=== PATIENT | female | born 1970 | race Caucasian/White ===

== ENCOUNTER → 2018-06-30 | Outpatient (CLI) | payer OTHER ==
--- NOTE | 2018-06-30 12:11 | MM ---
Reason for exam: screening (asymptomatic). Baseline mammogram. Physical Findings: Nurse did not find any significant physical abnormalities on exam. MG Screening Mammo w CAD Bilateral CC and MLO view(s) were taken. There are scattered fibroglandular densities. 9mm somewhat reinform shaped mass 2 o'clock middle to posterior depth left breast likely intramammary lymph node. 6 month follow up recommended. These results were verbally communicated with the patient and result sheet given to the patient on 06/30/18. ASSESSMENT: Probably benign, BI-RAD 3 RECOMMENDATION: Follow-up diagnostic mammogram of the left breast in 6 months.
== END | disposition home or self-care (01) ==
LOC: RADMAMWWP 10:22
PROVIDERS: ATTEND Family Medicine
DX: Z12.31 Encounter for screening mammogram for malignant neoplasm of breast (principal)
CPT/HCPCS: 77067

== ENCOUNTER → 2018-12-29 | Outpatient (CLI) | payer OTHER ==
--- NOTE | 2018-12-30 08:59 | MM ---
Reason for exam: follow-up at short interval from prior study. Last mammogram was performed 6 months ago. Physical Findings: Nurse did not find any significant physical abnormalities on exam. MG Diagnostic Mammo LT w CAD CC and MLO view(s) were taken of the left breast. Prior study comparison: June 30, 2018, bilateral MG screening mammo w CAD. The breast tissue is heterogeneously dense. This may lower the sensitivity of mammography. Finding: There is a typically benign equal density (isodense), circumscribed oval mass in the upper outer quadrant, middle position of the left breast consistent with lymph node. There is a chronic nodularity in the left breast. No significant changes in finding since June 30, 2018. These results were verbally communicated with the patient and result sheet given to the patient on 12/29/18. ASSESSMENT: Benign, BI-RAD 2 RECOMMENDATION: Return to routine screening mammogram schedule for both breasts. Back on schedule.
== END | disposition home or self-care (01) ==
LOC: RADMAMWWP 09:34
PROVIDERS: ATTEND Family Medicine
DX: R92.8 Other abnormal and inconclusive findings on diagnostic imaging of breast (principal)
CPT/HCPCS: 77065

== ENCOUNTER → 2019-03-11 | Outpatient (CLI) | payer OTHER ==
[2019-03-11 16:54] VITALS: BP 120/81; PULSE 61; TEMP 98.3; BMI 41.3
--- NOTE | 2019-03-11 17:00 | P.PN ---
Subjective Progress Note Date: 03/11/19 DATE OF SERVICE: 03/11/2019 REASON FOR CONSULTATION: Bariatric evaluation HISTORY OF PRESENT ILLNESS: Britt Carreno is a 48-year-old female who comes in with morbid obesity. She has completed medically supervised weight including evaluation for reflux disease, cardiac risk assessment. As a result of her BMI over 40 with complications of diabetes type 2, sleep apnea, reflux, depressive disorder, and hypertension, she is looking for a sleeve gastrectomy. She had all of her care done at [facility] however secondary to the dissolution of the program, she is now seeking other options. At height of 5 feet 2 inches, her ideal body weight is 135 pounds. She comes in 226 pounds. Her body mass index is 41.3. She is 91 pounds overweight. PAST MEDICAL HISTORY: 1. Morbid obesity due to excess calories 2. Body mass index of 41.3 3. Osteoarthritis of the knees. 4. Osteoarthritis of the lower back. 5. Hypertensive heart disease. 6. Gastroesophageal reflux disease 7. Hyperlipidemia 8. Obstructive sleep apnea 9. Diabetes type 2, non-insulin dependent 10. Hypothyroidism 11. Depressive disorder 12. Generalized anxiety disorder PAST SURGICAL HISTORY: 1. Tubal ligation 2. Upper endoscopy 3. Hysterectomy HOME MEDICATIONS: ALLERGIES: Home Medications Medication Instructions Recorded Confirmed Levothyroxine Sodium [Synthroid] 150 mcg PO DAILY 05/11/15 03/16/19 metFORMIN HCL 1,000 mg PO BID 05/11/15 03/16/19 Aspirin 81 mg PO DAILY 03/12/19 03/16/19 Citalopram Hydrobromide 60 mg PO DAILY 03/12/19 03/16/19 [Citalopram HBr] Cyclobenzaprine [Flexeril] 10 mg PO DIRECTED 03/12/19 03/16/19 Glimepiride [Amaryl] 4 mg PO BID 03/12/19 03/16/19 HYDROcodone/APAP 7.5-325MG [[place] 1 tab PO DIRECTED 03/12/19 03/16/19 7.5-325] Semaglutide [Ozempic] 1 injection SQ WEEKLY 03/12/19 03/16/19 Atorvastatin [Lipitor] 40 mg PO DAILY 03/16/19 03/16/19 Benazepril [Lotensin] 10 mg PO DAILY 03/16/19 03/16/19 Empagliflozin [Jardiance] 25 mg PO DAILY 03/16/19 03/16/19 Ergocalciferol [Vitamin D2] 50,000 unit PO Q7D 03/16/19 03/16/19 Multivitamins, Thera [Multivitamin 1 tab PO DAILY 03/16/19 03/16/19 (formulary)] Omeprazole 20 mg PO DAILY 03/16/19 03/16/19 Allergies Allergy/AdvReac Type Severity Reaction Status Date / Time No Known Allergies Allergy Verified 03/16/19 10:54 SOCIAL HISTORY: No past tobacco use. FAMILY HISTORY: No family history of ulcerative colitis disease or Crohn's disease. Family history of morbid obesity. No lupus in the family. No reports of stomach or esophageal cancer. REVIEW OF ORGAN SYSTEMS: CONSTITUTIONAL: At height of 5 feet 2 inches, her ideal body weight is 135 po unds. She comes in 226 pounds. Her body mass index is 41.3. She is 91 pounds overweight. HEENT: Denies any active troubles with vision or hearing. No troubles with swallowing. ENDOCRINE: Has diabetes. No hypothyroidism. CARDIOVASCULAR: No past reports of palpitations or heart attacks or chest pain. RESPIRATORY: Has daytime somnolence. No asthma. GASTROINTESTINAL: Denies any bright red blood per rectum. No diarrhea. No constipation. MUSCULOSKELETAL: Has lower back pain and joint pain. Has osteoarthritis of the knees. NEURO: No headaches. No seizure disorders. PSYCH: Has depression. No suicidal ideation. RHEUMATOLOGIC: No lupus. No rheumatoid arthritis. HEMATOLOGIC: Denies any abnormal bleeding or bruising. No personal history of DVTs. SKIN: No rash. No skin cancer. PHYSICAL EXAM: VITAL SIGNS: Height 5 foot 2 inches, weight 226 pounds. BMI 41.3 Vital Signs Temp 98.3 F 03/11/19 16:51 Pulse 61 03/11/19 16:51 Resp BP 120/81 03/11/19 16:51 Pulse Ox GENERAL: Well-developed in no acute distress. HEENT: No scleral icterus. Extraocular movements grossly intact. Hears conversational speech. No nasal drainage. NECK: Supple without lymphadenopathy. CHEST: Nonlabored respirations with equal bilateral excursions. CARDIOVASCULAR: Regular rate and regular rhythm. Distal 2+ pulses. ABDOMEN: Obese, soft, nontender, nondistended. MUSCULOSKELETAL: No clubbing, cyanosis. Gross strength 5/5 distal lower extremities. NEURO: No focal or lateralizing signs. Cranial nerves 2 through 12 grossly within normal limits. PSYCH: Appropriate affect. Alert and oriented to person, place and time. SKIN: Good skin turgor. Well perfused. ASSESSMENT: 1. Morbid obesity due to excess calories 2. Body mass index of 41.3 3. Osteoarthritis of the knees. 4. Osteoarthritis of the lower back. 5. Hypertensive heart disease. 6. Gastroesophageal reflux disease 7. Hyperlipidemia 8. Obstructive sleep apnea 9. Diabetes type 2, non-insulin dependent 10. Hypothyroidism 11. Depressive disorder 12. Generalized anxiety disorder PLAN: 1. Bariatric options between a sleeve, band and a Janet-en-Y gastric bypass were reviewed in detail. The patient elected for a sleeve gastrectomy. Robotic assisted approach described. 2. The [place] [facility] Data was also reviewed with benefits and risks as described. 3. An 8 page second-generation bariatric consent form was reviewed in detail including potential of bleeding, infection, leaks, adequate weight loss, nutritional deficiencies which the patient demonstrated understanding of the risks. 4. A 2 week high-protein low caloric 800 kcal diet described to address hepatomegaly. 5. Preoperative labs including complete metabolic panel and CBC with type and screen recommended. 6. DVT prophylaxis per [place] [facility]. 7. Antibiotic prophylaxis. 8. Inpatient hospitalization anticipated for more than 2 nights. 9. All questions and concerns were addressed with the patient. Thank you for this consultation. Objective - Vital Signs Vital signs: Vital Signs Temp 98.3 F 03/11/19 16:51 Pulse 61 03/11/19 16:51 Resp BP 120/81 03/11/19 16:51 Pulse Ox Intake & Output 03/10/19 03/11/19 03/11/19 18:59 06:59 18:59 Weight 102.512 kg
== END | disposition home or self-care (01) ==
LOC: BARWHC3 15:47
PROVIDERS: ATTEND Surgery Plastic and Reconstructive Surgery
DX: E66.01 Morbid (severe) obesity due to excess calories (principal); M17.0 Bilateral primary osteoarthritis of knee; M47.816 Spondylosis without myelopathy or radiculopathy, lumbar region; I11.9 Hypertensive heart disease without heart failure; K21.9 Gastro-esophageal reflux disease without esophagitis; E78.5 Hyperlipidemia, unspecified; G47.33 Obstructive sleep apnea (adult) (pediatric); E11.9 Type 2 diabetes mellitus without complications; E03.9 Hypothyroidism, unspecified; F32.9 Major depressive disorder, single episode, unspecified; F41.1 Generalized anxiety disorder; Z68.41 Body mass index [BMI] 40.0-44.9, adult; Z90.710 Acquired absence of both cervix and uterus; Z98.51 Tubal ligation status; Z79.82 Long term (current) use of aspirin; Z79.84 Long term (current) use of oral hypoglycemic drugs; Z79.899 Other long term (current) drug therapy
CPT/HCPCS: 99211

== ENCOUNTER → 2019-03-16 | Outpatient (CLI) | payer OTHER ==
[2019-03-16 09:52] VITALS: BMI 40.5
== END ==
LOC: BARWHC3 08:54
PROVIDERS: ATTEND Surgery Plastic and Reconstructive Surgery
DX: E66.01 Morbid (severe) obesity due to excess calories (principal); Z68.41 Body mass index [BMI] 40.0-44.9, adult
CPT/HCPCS: 97804

== ENCOUNTER → 2019-06-24 | Outpatient (CLI) | payer OTHER ==
[2019-06-24 15:51] VITALS: BP 114/82; PULSE 112; TEMP 98.3; BMI 37.6
--- NOTE | 2019-06-24 19:50 | P.PN ---
Progress Note - Text Progress Note Date: 06/24/19 Patient left prior to being seen
== END | disposition home or self-care (01) ==
LOC: BARWHC3 13:59
PROVIDERS: ATTEND Surgery Plastic and Reconstructive Surgery
DX: Z53.21 Procedure and treatment not carried out due to patient leaving prior to being seen by health care provider (principal)
CPT/HCPCS: 99211

== ENCOUNTER → 2019-07-06 | Outpatient (CLI) | payer OTHER ==
[2019-07-06 16:52] LABS: Basophils # (A) 0.1 k/uL (0-0.2); Basophils % (A) 1 %; Eosinophils # (A) 0.2 k/uL (0-0.7); Eosinophils % (A) 2 %; HCT 44.4 % (34.0-46.0); HGB 14.4 gm/dL (11.4-16.0); Lymphocytes # (A) 2.7 k/uL (1.0-4.8); Lymphocytes % (A) 31 %; MCH 28.1 pg (25.0-35.0); MCHC 32.5 g/dL (31.0-37.0); MCV 86.3 fL (80.0-100.0); Mean Platelet Volume 7.2; Monocytes # (A) 0.3 k/uL (0-1.0); Monocytes % (A) 4 %; Neutrophils # (A) 5.4 k/uL (1.3-7.7); Neutrophils % (A) 61 %; Platelet Count 250 k/uL (150-450); RBC 5.14 m/uL (3.80-5.40); RDW 12.8 % (11.5-15.5); WBC 8.8 k/uL (3.8-10.6)
[2019-07-06 16:59] LABS: ALT 52 U/L (9-52); AST 34 U/L (14-36); African American GFR (CKD) >90 (>60 ml/min/1.73 sqM); Albumin 4.6 g/dL (3.5-5.0); Alkaline Phosphatase 72 U/L (38-126); Anion Gap 11 mmol/L; Blood Urea Nitrogen 18 mg/dL (7-17); Calcium 10.5 mg/dL (8.4-10.2); Carbon Dioxide 27 mmol/L (22-30); Chloride 104 mmol/L (98-107); Glucose 61 mg/dL (74-99); Non-African American GFR(CKD) >90 (>60 ml/min/1.73 sqM); Potassium 4.5 mmol/L (3.5-5.1); Sodium 142 mmol/L (137-145); Total Bilirubin 0.6 mg/dL (0.2-1.3); Total Protein 7.6 g/dL (6.3-8.2)
== END | disposition home or self-care (01) ==
LOC: LABPAT 15:41
PROVIDERS: ATTEND Surgery Plastic and Reconstructive Surgery
DX: Z01.810 Encounter for preprocedural cardiovascular examination (principal); Z01.812 Encounter for preprocedural laboratory examination
CPT/HCPCS: 36415; 80053; 85025; 93005

== ENCOUNTER → 2019-07-08 | Outpatient (CLI) | payer OTHER ==
--- NOTE | 2019-07-08 15:22 | P.PN ---
Subjective Progress Note Date: 07/08/19 DATE OF SERVICE: 07/08/2019 CHIEF COMPLAINT: Morbid obesity HISTORY OF PRESENT ILLNESS: Britt Carreno is a 48-year-old female who comes in with morbid obesity. She has co-morbidities including diabetes type 2, sleep apnea, reflux, depressive disorder, and hypertension. She is looking for a sleeve gastrectomy. She comes in with troubles with her gallbladder which is new. She has improved control of her Hgb A1C from 8.5 to 5.1. She has lost 30 pounds. She has strong family history of gallbladder issue. At height of 5 feet 2 inches, her ideal body weight is 135 pounds. Highest 226 pounds, BMI 41.4. She comes in 210 pounds from 226 pounds, 4 months. She has lost 16 pounds in 4 months. She is 75 pounds overweight. PAST MEDICAL HISTORY: 1. Morbid obesity due to excess calories 2. Body mass index of 41.3 3. Osteoarthritis of the knees. 4. Osteoarthritis of the lower back. 5. Hypertensive heart disease. 6. Gastroesophageal reflux disease 7. Hyperlipidemia 8. Obstructive sleep apnea 9. Diabetes type 2, non-insulin dependent 10. Hypothyroidism 11. Depressive disorder 12. Generalized anxiety disorder PAST SURGICAL HISTORY: 1. Tubal ligation 2. Upper endoscopy 3. Hysterectomy HOME MEDICATIONS: ALLERGIES: Home Medications Medication Instructions Recorded Confirmed Levothyroxine Sodium [Synthroid] 150 mcg PO DAILY 05/11/15 03/16/19 metFORMIN HCL 1,000 mg PO BID 05/11/15 03/16/19 Aspirin 81 mg PO DAILY 03/12/19 03/16/19 Citalopram Hydrobromide 60 mg PO DAILY 03/12/19 03/16/19 [Citalopram HBr] Cyclobenzaprine [Flexeril] 10 mg PO DIRECTED 03/12/19 03/16/19 Glimepiride [Amaryl] 4 mg PO BID 03/12/19 03/16/19 HYDROcodone/APAP 7.5-325MG [[place] 1 tab PO DIRECTED 03/12/19 03/16/19 7.5-325] Semaglutide [Ozempic] 1 injection SQ WEEKLY 03/12/19 03/16/19 Atorvastatin [Lipitor] 40 mg PO DAILY 03/16/19 03/16/19 Benazepril [Lotensin] 10 mg PO DAILY 03/16/19 03/16/19 Empagliflozin [Jardiance] 25 mg PO DAILY 03/16/19 03/16/19 Ergocalciferol [Vitamin D2] 50,000 unit PO Q7D 03/16/19 03/16/19 Multivitamins, Thera [Multivitamin 1 tab PO DAILY 03/16/19 03/16/19 (formulary)] Omeprazole 20 mg PO DAILY 03/16/19 03/16/19 Allergies Allergy/AdvReac Type Severity Reaction Status Date / Time No Known Allergies Allergy Verified 03/16/19 10:54 SOCIAL HISTORY: No past tobacco use. FAMILY HISTORY: No family history of ulcerative colitis disease or Crohn's disease. Family history of morbid obesity. No lupus in the family. No reports of stomach or esophageal cancer. REVIEW OF ORGAN SYSTEMS: CONSTITUTIONAL: At height of 5 feet 2 inches, her ideal body weight is 135 pounds. She comes in 226 pounds. Her body mass index is 41.3. She is 91 pounds overweight. HEENT: Denies any active troubles with vision or hearing. No troubles with swallowing. ENDOCRINE: Has diabetes. No hypothyroidism. CARDIOVASCULAR: No past reports of palpitations or heart attacks or chest pain. RESPIRATORY: Has daytime somnolence. No asthma. GASTROINTESTINAL: Denies any bright red blood per rectum. No diarrhea. No c onstipation. MUSCULOSKELETAL: Has lower back pain and joint pain. Has osteoarthritis of the knees. NEURO: No headaches. No seizure disorders. PSYCH: Has depression. No suicidal ideation. RHEUMATOLOGIC: No lupus. No rheumatoid arthritis. HEMATOLOGIC: Denies any abnormal bleeding or bruising. No personal history of DVTs. SKIN: No rash. No skin cancer. PHYSICAL EXAM: VITAL SIGNS: Height 5 foot 2 inches, weight 210 pounds. BMI 38.4 Vital Signs Temp 98.2 F 07/08/19 15:41 Pulse 116 H 07/08/19 15:41 Resp BP 131/87 07/08/19 15:41 Pulse Ox GENERAL: Well-developed in no acute distress. HEENT: No scleral icterus. Extraocular movements grossly intact. Hears conversational speech. No nasal drainage. NECK: Supple without lymphadenopathy. CHEST: Nonlabored respirations with equal bilateral excursions. CARDIOVASCULAR: Tachycardic. Distal 2+ pulses. ABDOMEN: Obese, soft, nontender, nondistended. MUSCULOSKELETAL: No clubbing, cyanosis. NEURO: No focal or lateralizing signs. Cranial nerves 2 through 12 grossly within normal limits. PSYCH: Appropriate affect. Alert and oriented to person, place and time. SKIN: Good skin turgor. Well perfused. EKG: Reviewed prolonged QT LABS: Glucose low. ASSESSMENT: 1. Morbid obesity due to excess calories 2. Body mass index of 41.3 to 38.4 3. Osteoarthritis of the knees. 4. Osteoarthritis of the lower back. 5. Hypertensive heart disease. 6. Gastroesophageal reflux disease 7. Hyperlipidemia 8. Obstructive sleep apnea 9. Diabetes type 2, non-insulin dependent 10. Hypothyroidism 11. Depressive disorder 12. Generalized anxiety disorder PLAN: 1. Bariatric options between a sleeve, band and a Janet-en-Y gastric bypass were reviewed in detail. The patient elected for a sleeve gastrectomy. Robotic assisted approach described. 2. The [place] [facility] Data was also reviewed with benefits and risks as described. 3. An 8 page second-generation bariatric consent form was reviewed in detail including potential of bleeding, infection, leaks, adequate weight loss, nutritional deficiencies which the patient demonstrated understanding of the risks. 4. A 2 week high-protein low caloric 800 kcal diet described to address hepatomegaly. 5. Preoperative labs including complete metabolic panel and CBC with type and screen recommended. 6. DVT prophylaxis per [place] [facility]. 7. Antibiotic prophylaxis. 8. Inpatient hospitalization anticipated for more than 2 nights. 9. All questions and concerns were addressed with the patient. 10. Recommend cholecystectomy for cholecystitis. 11. She is elevated risk for complications with pre-existing tachycardia.
[2019-07-08 15:48] VITALS: BP 131/87; PULSE 116; TEMP 98.2; BMI 38.4
== END | disposition home or self-care (01) ==
LOC: BARWHC3 14:49
PROVIDERS: ATTEND Surgery Plastic and Reconstructive Surgery
DX: E66.01 Morbid (severe) obesity due to excess calories (principal); M17.0 Bilateral primary osteoarthritis of knee; I11.9 Hypertensive heart disease without heart failure; K21.9 Gastro-esophageal reflux disease without esophagitis; E78.5 Hyperlipidemia, unspecified; G47.33 Obstructive sleep apnea (adult) (pediatric); E11.9 Type 2 diabetes mellitus without complications; E03.9 Hypothyroidism, unspecified; F32.9 Major depressive disorder, single episode, unspecified; F41.1 Generalized anxiety disorder; Z68.41 Body mass index [BMI] 40.0-44.9, adult
CPT/HCPCS: 86850; 86900; 86901; 99211

== ENCOUNTER 2019-07-13 07:30 | Inpatient (IN) | payer OTHER ==
[~2019-07-13 07:30] MED LIST: DEXAMETHASONE SOD PHOSPHATE 10 MG/ML 1 ML VIAL IV ONE; LIDOCAINE 1% 20 ML VIAL (10MG/ML) FOR IV START INTRADERMA PRN; ONDANSETRON 4 MG/2 ML VIAL IVP ONE; SCOPOLAMINE 1.5MG/72HR PATCH TRANSDERM ONE
[2019-07-13] MEDS ORDERED: ENOXAPARIN 40 MG/0.4 ML SYRINGE SQ STA (07:44)
[2019-07-13] MEDS ORDERED: PANTOPRAZOLE 40 MG/10 ML VIAL IV STA (07:44)
[2019-07-13] MEDS ORDERED: CHLORHEXIDINE GLUCONATE 15 ML CUP MUCOUS MEM ONE (07:44)
--- NOTE | 2019-07-13 07:50 | P.GSHP ---
History of Present Illness H&P Date: 07/13/19 DATE OF SERVICE: 07/13/2019 CHIEF COMPLAINT: Morbid obesity HISTORY OF PRESENT ILLNESS: Britt Carreno is a 48-year-old female who comes in with morbid obesity. She has completed medically supervised weight including evaluation for reflux disease, cardiac risk assessment. As a result of her BMI over 40 with complications of diabetes type 2, sleep apnea, reflux, depressive disorder, and hypertension, she is looking for a sleeve gastrectomy. She had all of her care done at [facility] however secondary to the dissolution of the program, she is now seeking other options. Additionally, she presents with symptomatic cholecystitis. At height of 5 feet 2 inches, her ideal body weight is 135 pounds. She comes in 206 pounds from 226 pounds, 3 months ago. She has lost 20 pounds in 3 months. Her body mass index was 41.3 now down to 37.7. She was 91 pounds overweight. PAST MEDICAL HISTORY: 1. Morbid obesity due to excess calories 2. Body mass index of 41.3 3. Osteoarthritis of the knees. 4. Osteoarthritis of the lower back. 5. Hypertensive heart disease. 6. Gastroesophageal reflux disease 7. Hyperlipidemia 8. Obstructive sleep apnea 9. Diabetes type 2, non-insulin dependent 10. Hypothyroidism 11. Depressive disorder 12. Generalized anxiety disorder PAST SURGICAL HISTORY: 1. Tubal ligation 2. Upper endoscopy 3. Hysterectomy HOME MEDICATIONS: ALLERGIES: Home Medications Medication Instructions Recorded Confirmed Levothyroxine Sodium [Synthroid] 150 mcg PO DAILY 05/11/15 03/16/19 metFORMIN HCL 1,000 mg PO BID 05/11/15 03/16/19 Aspirin 81 mg PO DAILY 03/12/19 03/16/19 Citalopram Hydrobromide 60 mg PO DAILY 03/12/19 03/16/19 [Citalopram HBr] Cyclobenzaprine [Flexeril] 10 mg PO DIRECTED 03/12/19 03/16/19 Glimepiride [Amaryl] 4 mg PO BID 03/12/19 03/16/19 HYDROcodone/APAP 7.5-325MG [[place] 1 tab PO DIRECTED 03/12/19 03/16/19 7.5-325] Semaglutide [Ozempic] 1 injection SQ WEEKLY 03/12/19 03/16/19 Atorvastatin [Lipitor] 40 mg PO DAILY 03/16/19 03/16/19 Benazepril [Lotensin] 10 mg PO DAILY 03/16/19 03/16/19 Empagliflozin [Jardiance] 25 mg PO DAILY 03/16/19 03/16/19 Ergocalciferol [Vitamin D2] 50,000 unit PO Q7D 03/16/19 03/16/19 Multivitamins, Thera [Multivitamin 1 tab PO DAILY 03/16/19 03/16/19 (formulary)] Omeprazole 20 mg PO DAILY 03/16/19 03/16/19 Allergies Allergy/AdvReac Type Severity Reaction Status Date / Time No Known Allergies Allergy Verified 03/16/19 10:54 SOCIAL HISTORY: No past tobacco use. FAMILY HISTORY: No family history of ulcerative colitis disease or Crohn's disease. Family history of morbid obesity. No lupus in the family. No reports of stomach or esophageal cancer. REVIEW OF ORGAN SYSTEMS: CONSTITUTIONAL: At height of 5 feet 2 inches, her ideal body weight is 135 pounds. She comes in 226 pounds. Her body mass index is 41.3. She is 91 pounds overweight. HEENT: Denies any active troubles with vision or hearing. No troubles with swallowing. ENDOCRINE: Has diabetes. No hypothyroidism. CARDIOVASCULAR: No past reports of palpitations or heart attacks or chest pain. RESPIRATORY: Has daytime somnolence. No asthma. GASTROINTESTINAL: Denies any bright red blood per rectum. No diarrhea. No constipation. MUSCULOSKELETAL: Has lower back pain and joint pain. Has osteoarthritis of the knees. NEURO: No headaches. No seizure disorders. PSYCH: Has depression. No suicidal ideation. RHEUMATOLOGIC: No lupus. No rheumatoid arthritis. HEMATOLOGIC: Denies any abnormal bleeding or bruising. No personal history of DVTs. SKIN: No rash. No skin cancer. PHYSICAL EXAM: VITAL SIGNS: Height 5 foot 2 inches, weight 226 pounds. BMI 41.3 GENERAL: Well-developed in no acute distress. HEENT: No scleral icterus. Extraocular movements grossly intact. Hears conversational speech. No nasal drainage. NECK: Supple without lymphadenopathy. CHEST: Nonlabored respirations with equal bilateral excursions. CARDIOVASCULAR: Regular rate and regular rhythm. Distal 2+ pulses. ABDOMEN: Obese, soft, nontender, nondistended. MUSCULOSKELETAL: No clubbing, cyanosis. Gross strength 5/5 distal lower extremities. NEURO: No focal or lateralizing signs. Cranial nerves 2 through 12 grossly within normal limits. PSYCH: Appropriate affect. Alert and oriented to person, place and time. SKIN: Good skin turgor. Well perfused. ASSESSMENT: 1. Morbid obesity due to excess calories 2. Body mass index of 41.3 3. Osteoarthritis of the knees. 4. Osteoarthritis of the lower back. 5. Hypertensive heart disease. 6. Gastroesophageal reflux disease 7. Hyperlipidemia 8. Obstructive sleep apnea 9. Diabetes type 2, non-insulin dependent 10. Hypothyroidism 11. Depressive disorder 12. Generalized anxiety disorder 13. Chronic cholecystitis PLAN: 1. Bariatric options between a sleeve, band and a Janet-en-Y gastric bypass were reviewed in detail. The patient elected for a sleeve gastrectomy. Robotic assisted approach described. 2. The [place] [facility] Data was also reviewed with benefits and risks as described. 3. An 8 page second-generation bariatric consent form was reviewed in detail including potential of bleeding, infection, leaks, adequate weight loss, nutritional deficiencies which the patient demonstrated understanding of the risks. 4. A 2 week high-protein low caloric 800 kcal diet described to address hepatomegaly. 5. Preoperative labs including complete metabolic panel and CBC with type and screen recommended. 6. DVT prophylaxis per [place] [facility]. 7. Antibiotic prophylaxis. 8. Inpatient hospitalization anticipated for more than 2 nights. 9. All questions and concerns were addressed with the patient. 10. She has chronic cholecystitis. Robotic cholecystectomy described. Past Medical History Past Medical History: Diabetes Mellitus, Hyperlipidemia, Thyroid Disorder History of Any Multi-Drug Resistant Organisms: None Reported Past Surgical History: Hysterectomy, Tubal Ligation Past Anesthesia/Blood Transfusion Reactions: Motion Sickness, Postoperative Nausea & Vomiting (PONV) Past Psychological History: Anxiety Smoking Status: Never smoker Past Alcohol Use History: None Reported Past Drug Use History: None Reported - Past Family History Mother Family Medical History: No Reported History Medications and Allergies Home Medications Medication Instructions Recorded Confirmed Type Levothyroxine Sodium [Synthroid] 150 mcg PO DAILY 05/11/15 07/03/19 History metFORMIN HCL 1,000 mg PO BID 05/11/15 07/03/19 History Citalopram Hydrobromide 60 mg PO DAILY 03/12/19 07/03/19 History [Citalopram HBr] Glimepiride [Amaryl] 4 mg PO BID 03/12/19 07/03/19 History Semaglutide [Ozempic] 1 injection SQ WEEKLY 03/12/19 07/03/19 History Atorvastatin [Lipitor] 40 mg PO DAILY 03/16/19 07/03/19 History Benazepril [Lotensin] 10 mg PO DAILY 03/16/19 07/03/19 History Empagliflozin [Jardiance] 25 mg PO DAILY 03/16/19 07/03/19 History Ergocalciferol [Vitamin D2] 50,000 unit PO [place] 03/16/19 07/03/19 History Omeprazole 20 mg PO DAILY 03/16/19 07/03/19 History Losartan [Cozaar] 100 mg PO DAILY 06/24/19 07/03/19 History Aspirin [Adult Low Dose Aspirin EC] 81 mg PO DAILY 07/03/19 07/03/19 History Multivitamins, Thera [Multivitamin 1 tab PO DAILY 07/03/19 07/03/19 History (formulary)] Allergies Allergy/AdvReac Type Severity Reaction Status Date / Time No Known Allergies Allergy Verified 07/03/19 14:11
[2019-07-13] MEDS ORDERED: INDOCYANINE GREEN 25 MG VIAL IV STA (07:51)
[2019-07-13] MEDS: LACTATED RINGERS 1,000 ML IV SCH (08:01)
[2019-07-13 08:04] LABS: Glucose,Whole Blood 126 mg/dL (75-99)
[2019-07-13] MEDS ORDERED: SUCCINYLCHOLINE CHLORIDE 100 MG/5 ML SYR IV ONE (09:49)
[2019-07-13] MEDS ORDERED: PROPOFOL 10 MG/ML 20 ML VIAL IV ONE (09:49)
[2019-07-13] MEDS ORDERED: MIDAZOLAM 2 MG/2 ML VIAL ONE (09:49)
[2019-07-13] MEDS ORDERED: NEOSTIGMINE 1 MG/ML 10 ML VIAL ONE (09:49)
[2019-07-13] MEDS ORDERED: fentaNYL (PF) 50 MCG/ML 2 ML AMP ONE (09:49)
[2019-07-13] MEDS ORDERED: LIDOCAINE 1% INJ 10MG/ML (20 ML MDV) ONE (09:49)
[2019-07-13] MEDS ORDERED: INDOCYANINE GREEN 25 MG VIAL IV ONE (09:49)
[2019-07-13] MEDS ORDERED: PHENYLEPHRINE-0.9% NACL SYG 1 MG/10 ML SYRINGE ONE (09:49)
[2019-07-13] MEDS ORDERED: ROCURONIUM BROMIDE 10 MG/ML 10 ML VIAL IV ONE (09:49)
[2019-07-13] MEDS ORDERED: GLYCOPYRROLATE 0.2 MG/ML 2 ML VIAL ONE (09:49)
[2019-07-13] MEDS ORDERED: LIDOCAINE 1%-EPI 1:100,000 20 ML VIAL SQ ONE (10:29)
[2019-07-13] MEDS ORDERED: LACTATED RINGERS 1,000 ML IV ONE ×2 (10:42→12:46)
[2019-07-13] MEDS ORDERED: NALOXONE 0.4 MG/ML 1 ML VIAL IV PRN (12:16)
[2019-07-13] MEDS ORDERED: DEXAMETHASONE SOD PHOSPHATE 10 MG/ML 1 ML VIAL IV PRN (12:16)
[2019-07-13] MEDS ORDERED: diphenhydrAMINE 50 MG/ML 1 ML VIAL IVP PRN (12:16)
[2019-07-13] MEDS ORDERED: ONDANSETRON 4 MG/2 ML VIAL IVP ONE (12:23)
[2019-07-13] MEDS: HYDROmorphone 0.5 MG/0.5 ML SYRINGE IVP PRN ×5 (12:24→18:49)
--- NOTE | 2019-07-13 12:28 | P.OP ---
Date of Procedure: 07/13/19 Description of Procedure: SURGEON: PAOLA MELO MD PREOPERATIVE DIAGNOSES: 1. Morbid obesity due to excess calories 2. Body mass index of 41.3, initial 3. Osteoarthritis of the knees. 4. Osteoarthritis of the lower back. 5. Hypertensive heart disease. 6. Gastroesophageal reflux disease 7. Hyperlipidemia 8. Obstructive sleep apnea 9. Diabetes type 2, non-insulin dependent 10. Hypothyroidism 11. Depressive disorder 12. Generalized anxiety disorder 13. Chronic cholecystitis POSTOPERATIVE DIAGNOSES: 1. Morbid obesity due to excess calories 2. Body mass index of 41.3, initial 3. Osteoarthritis of the knees. 4. Osteoarthritis of the lower back. 5. Hypertensive heart disease. 6. Gastroesophageal reflux disease 7. Hyperlipidemia 8. Obstructive sleep apnea 9. Diabetes type 2, non-insulin dependent 10. Hypothyroidism 11. Depressive disorder 12. Generalized anxiety disorder 13. Chronic cholecystitis 14. Fatty liver disease OPERATION: 1. Robotic assisted daVinci Xi laparoscopic sleeve gastrectomy with 40-Russian bougie, multiport. 2. Robotic assisted daVinci Xi laparoscopic cholecystectomy with FIREFLY, multiport. 3. Intraoperative esophagogastroduodenoscopy. ANESTHESIA: Gen. local anesthetic ESTIMATED BLOOD LOSS: 5 mL SPECIMENS REMOVED: Sleeve gastrectomy and gallbladder COMPLICATIONS: None. INDICATIONS: Britt Carreno is a 48-year-old female who comes in with morbid obesity. She has completed medically supervised weight including evaluation for reflux disease, cardiac risk assessment. As a result of her BMI over 40 with complications of diabetes type 2, sleep apnea, reflux, depressive disorder, and hypertension, she is looking for a sleeve gastrectomy. Additionally, she presents with symptomatic cholecystitis. At height of 5 feet 2 inches, her ideal body weight is 135 pounds. She comes in 206 pounds from 226 pounds, 3 months ago. She has lost 20 pounds in 3 months. Her body mass index was 41.3 now down to 37.3. She was 91 pounds overweight. All surgical options for morbid obesity had been described using the [place] bariatric surgery collaborative comorbidity resolution including complication risk score. A second-generation bariatric consent form was described in detail including the possibility of protein malnutrition, leaks, gastric stricture, venous thrombosis, gastroesophageal reflux disease, need for further surgery for which she demonstrated understanding. Additionally she has cholecystitis for which cholecystectomy was described. Benefits and risks of the procedure were described at length. Informed consent was obtained. DESCRIPTION: The patient was brought into the operating room theater. Pre operatively she had received Lovenox subcutaneously for DVT prophylaxis. Additionally she had Peridex oral solution as an oral decontaminant. After general induction, the abdomen was prepped and draped in standard sterile fashion. An Ioban draping was placed along the abdomen. No nuñez catheter was placed A robotic da Marjan Xi system was prepped and primed. At 15 cm from the xiphoid, proposed port sites were marked with indelible marker along the anterior axillary line bilaterally, mid axillary line bilaterally with each ports were marked 10 to 15 cm from each other. The resident programs assistant port was marked along the left lateral abdominal wall. The robotic stapler port was marked for the right midclavicular line. A 5 mm 0 degrees laparoscopic trocar entry was performed along the left upper q uadrant. The abdomen was insufflated to 15 mmHg pressure was tolerated well. Diagnostic laparoscopy demonstrated no injury to bowel, viscera, or mesentery. The liver surface was remarkable for mild fatty liver disease. No injury had occurred to the small bowel or viscera. Along the hiatus no evidence of prominent hiatal hernia. A 12 mm port was placed along the left upper abdominal wall after exchanging the 5 mm port. Another port was placed along the left lateral abdominal wall 8 mm. A separate 8 mm port was placed along the epigastrium and a 12-mm port placed along the right upper quadrant. Please note that the ports were placed at least 20 cm away from the target anatomy. Another port was placed along the right lateral abdominal wall, 8 mm trocar. Care was taken to check each robotic arms were safely away from collision with the bed or the patient. I had sat at the console. At the epigastrium, a median sized Kameron liver retractor was placed under direct visualization with the Iron Cotton Agent placed under the right shoulder of the patient. Next, 12-mm robot stapler port was placed along the right upper quadrant. The camera 8-mm port was maintained along the epigastrium. The patient was repositioned in reverse Trendelenburg position at 20-degrees after lowering the bed. The robot was docked along the right side of the patient. Using a grasper for arm 2, a hook cautery for arm 3, including grasper for arm 1, the robotic system was docked and primed as described. Instruments including Bovie cautery, vessel sealer, and staplers, and clips were interchanged by the resident programs assistant for stapler loads. The camera was placed at 30-degrees down. Attention was brought to the sleeve gastrectomy portion of the case. The pylorus was identified and 6 cm proximally along the greater curvature of the stomach, the short gastrics were mobilized upwards to the angle of His using a vessel sealer. Redundant and adherent gastric cardia was addressed similarly and carefully with vessel sealer. Hemostasis was excellent during this portion of the procedure. The nursing wardsperson had advanced a 40-Russian blunt bougie into the stomach. Robotic stapler green and blue loads 60 mm were used to create the sleeve. Initial firing was across the antrum of the stomach towards the angle of His. The staple line was completely hemostatic and linear without corkscrewing. Hemo stasis was excellent. The space from the angularis incisura of the sleeve was approximately 4 cm. Attention is now brought to her gallbladder. Adhesions were identified along the infundibulum of the gallbladder and addressed using vessel sealer. The gallbladder fundus was retracted over the dome of the liver. Initial attention was brought to the infundibulum which was gently retracted in the inferior lateral approach. Using a grasper, the cystic duct including the cystic artery was carefully skeletonized. A critical view of safety was obtained. FIREFLY was used to identify the cystic artery and cystic structures. Large PLASTIC clips were used throughout the entire case. Using a clip locomotive switch operator 1 clip was placed proximally, and 1 clip was placed distally along the cystic duct and then cauterized. Again care was taken to avoid any injury to the biliary tree as the common bile duct was clearly visualized during this portion of dissection. Next, the cystic artery was similarly clipped and cauterized. Electro-Bovie cautery was used to remove the gallbladder from the hepatic fossa with minimal decompression of the gallbladder. Hemostasis was checked and found to be adequate. I then went to the head of the bed to perform the intraoperative esophagogastroduodenoscopy leak test. The upper pole of the stomach was bathed using normal saline solution. The scope was withdrawn with careful inspection along the staple line for which no leaks were found along the entire length. Additionally, the sleeve was completely hemostatic without any encroachment along the angularis incisura. Its topology was a soft "J". No stricture was encountered upon placement of the scope. The GI tract was desufflated. The patient tolerated this portion of the procedure well. The scope was completely withdrawn. The robot was undocked. I then rescrubbed into case, whereby the irrigation fluid was aspirated from the abdominal cavity. Tisseal fibrin sealant was placed along the entire staple length. Once dried the Kameron liver retractor was removed. Attention was now brought to removal of the specimens including the gallbladder. Gallbladder was removed using Endo Catch bag. The distal end of the sleeve gastrectomy specimen was brought out through the 12 mm port at the left upper quadrant. The specimen was gently removed en total, corresponding to 26 cm x 4 cm sleeve gastrectomy specimen. All instruments and pneumoperitoneum including irrigation fluid was removed from the abdominal cavity. The 12 mm port site was irrigated with warm normal saline solution and diluted hydron peroxide. The specimen extraction site was oversewn using 0 Vicryl including Sherman Garza. The final incisions were closed using subcuticular interrupted suture of 4-0 Monocryl. Dermabond was applied to the skin once the skin had been cleansed. OptiFoam dressing was placed along the stomach extraction site. An abdominal binder was placed. At the end of the procedure, needle, sponge, and instrument count was verified correct by the surgical elastic knitter. The patient was taken to the postanesthesia care unit in stable condition. She had tolerated the procedure well. Intraoperative films and findings were reviewed with the patient's family. FINDINGS: 1. Negative intraoperative esophagogastrojejunoscopy leak test. 2. No hepatomegaly or large hiatus hernia. 3. Total of 6 staplers used including 2 - 60 mm green robot darci and 4 - 60 mm blue loads used to create the gastric sleeve. 4. Decompression of gallbladder 5. Sleeve gastrectomy 26 x 4 cm 6. Console time 49 minutes
[2019-07-13] MEDS ORDERED: diphenhydrAMINE 50 MG/ML 1 ML VIAL IVP ONE (12:30)
[2019-07-13 12:32] LABS: Glucose,Whole Blood 212 mg/dL (75-99)
[2019-07-13] MEDS ORDERED: INSULIN ASPART (NovoLOG) 100 UNIT/ML VIAL SQ ONE (12:52)
[2019-07-13] MEDS ORDERED: ACETAMINOPHEN IV (For NPO) 1,000 MG in EMPTY BAG 1 BAG IVPB ONE (13:00)
[2019-07-13] MEDS: METOCLOPRAMIDE 5 MG/ML 2 ML VIAL IVP SCH ×2 (13:31→18:01)
[2019-07-13 13:44] LABS: Glucose,Whole Blood 164 mg/dL (75-99)
[2019-07-13] MEDS: ALBUTEROL NEBULIZED 2.5 MG/3 ML INHALATION SCH ×2 (16:06→20:09)
[2019-07-13] MEDS: 0.9% NACL WITH KCL 20 MEQ/L 1,000 ML IV SCH ×2 (17:13→18:01)
[2019-07-13 17:55] LABS: Glucose,Whole Blood 156 mg/dL (75-99)
[2019-07-13] MEDS: DEXAMETHASONE SOD PHOSPHATE 4 MG/ML 1 ML VIAL IV SCH (18:01)
[2019-07-13] MEDS: SIMETHICONE 80 MG CHEWABLE PO SCH (18:02)
[2019-07-13] MEDS: ONDANSETRON 4 MG/2 ML VIAL IVP SCH (18:02)
[2019-07-13] MEDS: HYOSCYAMINE ORAL DROPS 1.875 MG/15 ML BOTTLE PO SCH (18:02)
[2019-07-13] MEDS: INSULIN ASPART (NovoLOG) 100 UNIT/ML VIAL SQ SCH (18:03)
[2019-07-13] MEDS ORDERED: SODIUM CHLORIDE 0.9% 2,000 ML IV ONE (19:18)
[2019-07-13] MEDS ORDERED: HYDROmorphone 1 MG/ML 1 ML SYRINGE IVP PRN (19:19)
[2019-07-13] MEDS: ACETAMINOPHEN IV (For NPO) 1,000 MG in EMPTY BAG 1 BAG IVPB SCH (21:40)
[2019-07-13] MEDS ORDERED: ENOXAPARIN 40 MG/0.4 ML SYRINGE SQ SCH (23:00)
[2019-07-14] MEDS: DEXAMETHASONE SOD PHOSPHATE 4 MG/ML 1 ML VIAL IV SCH ×3 (00:26→12:07)
[2019-07-14] MEDS: HYOSCYAMINE ORAL DROPS 1.875 MG/15 ML BOTTLE PO SCH ×3 (00:26→12:07)
[2019-07-14] MEDS: METOCLOPRAMIDE 5 MG/ML 2 ML VIAL IVP SCH ×3 (00:26→12:09)
[2019-07-14] MEDS: ONDANSETRON 4 MG/2 ML VIAL IVP SCH ×3 (00:26→12:06)
[2019-07-14] MEDS: SIMETHICONE 80 MG CHEWABLE PO SCH ×3 (00:27→12:08)
[2019-07-14 00:33] LABS: Glucose,Whole Blood 144 mg/dL (75-99)
[2019-07-14] MEDS: INSULIN ASPART (NovoLOG) 100 UNIT/ML VIAL SQ SCH ×3 (00:39→12:07)
[2019-07-14] MEDS: 0.9% NACL WITH KCL 20 MEQ/L 1,000 ML IV SCH (02:24)
[2019-07-14] MEDS: ACETAMINOPHEN IV (For NPO) 1,000 MG in EMPTY BAG 1 BAG IVPB SCH ×3 (03:00→15:30)
[2019-07-14] MEDS: LACTATED RINGERS 1,000 ML IV SCH (03:05)
[2019-07-14 06:21] LABS: Glucose,Whole Blood 134 mg/dL (75-99)
[2019-07-14] MEDS ORDERED: LEVOTHYROXINE 75 MCG TAB PO SCH (06:30)
[2019-07-14] MEDS: ALBUTEROL NEBULIZED 2.5 MG/3 ML INHALATION SCH ×3 (07:10→15:36)
[2019-07-14 07:57] LABS: Basophils % (A) 0 %; Eosinophils % (A) 0 %; HCT 37.4 % (34.0-46.0); HGB 11.9 gm/dL (11.4-16.0); Lymphocytes # (A) 1.6 k/uL (1.0-4.8); Lymphocytes % (A) 17 %; MCHC 31.9 g/dL (31.0-37.0); MCV 87.6 fL (80.0-100.0); Mean Platelet Volume 7.4; Monocytes # (A) 0.2 k/uL (0-1.0); Monocytes % (A) 3 %; Neutrophils # (A) 7.8 k/uL (1.3-7.7); Neutrophils % (A) 80 %; Platelet Count 226 k/uL (150-450); RBC 4.26 m/uL (3.80-5.40); RDW 13.1 % (11.5-15.5); WBC 9.7 k/uL (3.8-10.6)
[2019-07-14] MEDS ORDERED: 1: MVI, ADULT NO.4 WITH VIT K 10 ML, THIAMINE 100 MG, FOLIC ACID 1 MG, POTASSIUM CHLORID IV SCH ×6 (08:00)
[2019-07-14 08:08] LABS: African American GFR (CKD) >90 (>60 ml/min/1.73 sqM); Anion Gap 8 mmol/L; Blood Urea Nitrogen 9 mg/dL (7-17); Calcium 9.2 mg/dL (8.4-10.2); Carbon Dioxide 22 mmol/L (22-30); Chloride 112 mmol/L (98-107); Magnesium 1.9 mg/dL (1.6-2.3); Non-African American GFR(CKD) >90 (>60 ml/min/1.73 sqM); Phosphorus 3.3 mg/dL (2.5-4.5); Sodium 142 mmol/L (137-145)
[2019-07-14] MEDS ORDERED: PANTOPRAZOLE 40 MG/10 ML VIAL IV SCH (09:00)
[2019-07-14] MEDS ORDERED: LOSARTAN 50 MG TAB PO SCH (09:00)
[2019-07-14] MEDS ORDERED: LISINOPRIL 10 MG TAB PO SCH (09:00)
[2019-07-14 10:23] VITALS: BMI 37.2
--- NOTE | 2019-07-14 10:33 | FL ---
SINGLE CONTRAST UPPER GI EXAMINATION: CLINICAL HISTORY: 48-year-old female postop bariatric surgery with the gastrectomy and cholecystecto my. TECHNIQUE: Single contrast exam performed with 25 ml Isovue-370 contrast. Total fluoroscopy time: 1 minute 43 seconds. Total images: 31. FINDINGS: The patient swallowed oral contrast without difficulty or delay. Esophageal peristalsis and motility are within normal limits. There is initial prompt passage of contrast from the esophagus into the p roximal stomach and gradual passage along the gastric sleeve and eventually into the duodenum. Howeve r, subsequent swallows and results in progressive back up of contrast with recurrent episodes of jyoti roesophageal and intraesophageal reflux and disordered tertiary peristaltic contractions in the lower esophagus. Only half of the contrast was ingested by the patient at the end of the exam, residual co ntrast pools within the lower esophagus. There is no evidence of contrast extravasation to suggest leak. No post surgical free air. IMPRESSION: 1. No evidence of leak status post sleeve gastrectomy. 2. Mild postoperative obstruction with the patient ingesting only half of the oral contrast. Recurren t episodes of gastroesophageal and intraesophageal reflux. At the end of the exam, residual oral cont rast remains pooled in the lower esophagus. 3. No post surgical free air.
[2019-07-14 11:46] LABS: Glucose,Whole Blood 155 mg/dL (75-99)
[2019-07-14] MEDS ORDERED: SODIUM CHLORIDE 0.9% 2,000 ML IV ONE (14:03)
--- NOTE | 2019-07-14 14:08 | PN ---
PROGRESS NOTE DATE OF SERVICE: 07/14/2019 CHIEF COMPLAINT: Status post bariatric surgery. HISTORY OF PRESENT ILLNESS: This lady is doing well. She only has slight abdominal wall pain. She has had no fever or chills. No shortness of breath, chest pain, etc. PHYSICAL EXAMINATION: Color is good. Skin is dry. Cardiac exam is normal and the chest is clear. IMPRESSION: Status post bariatric procedure. PLAN: Probably home later today and will follow her up in the office in few days. MMODL / IJN: [id number] /
--- NOTE | 2019-07-14 15:08 | CONS ---
CONSULTATION CHIEF COMPLAINT: Morbid obesity. HISTORY OF PRESENT ILLNESS: This is the first known admission for this 48-year-old obese white female. She is followed in the office for hypertension, hyperlipidemia, type 2 NIDDM, and sleep apnea. She also has hypothyroidism and some issues with depression. She has come in for an elective bariatric procedure. REVIEW OF SYSTEMS: She has had no neurologic problems, difficulty with vision or hearing, chest pain, shortness of breath, cough, hemoptysis, heart disease, angina, palpitations, syncope, orthopnea, PND, murmurs, rheumatic fever, etc. She has had no abdominal pain, nausea, vomiting, hematemesis, ulcer disease, melena, hematochezia, diarrhea, diverticulosis, renal failure, hematuria, frequency, urgency and dysuria, significant arthritis. Past medical history, family history, personal and social histories are otherwise unremarkable and noncontributory and can be found in her admitting note. Surgically she has had a tubal ligation and then a hysterectomy. MEDICATIONS INCLUDE: Levothyroxine 0.150 once a day, metformin 1 g twice a day, 81 mg aspirin, citalopram 60 mg once a day, Flexeril 10 mg once a day, glimepiride 4 mg b.i.d., Vicodin 7.5 q.4 hours p.r.n., Ozempic 0.5 once a week, atorvastatin 40 mg once a day, Jardiance 25 mg once a day, vitamin D 50,000 units once a month, and omeprazole 20 mg once a day. ALLERGIES: Not allergic to any medication. PHYSICAL EXAMINATION: Blood pressure is 120/75 with a pulse of 68, respirations 22, and she is afebrile. In general, she appeared to be obese and in no acute distress. Skin color is normal, skin is warm, dry. Lymph nodes are not enlarged. Head, ears, eyes, nose, mouth, and throat were normal. Neck veins are not distended. Thyroid is not enlarged. Chest is clear. Cardiac exam is normal and the abdomen is soft and protuberant. There are no masses or visceromegaly. Extremities are normal. Neurologically she is intact. She is admitted to hospital with diagnoses: 1. Morbid obesity. 2. Hypertension. 3. Hypothyroidism. 4. A type 2 NIDDM. 5. Sleep apnea. 6. Arthritis. RECOMMENDATION: None. She is an excellent candidate and should do well. KRISHAN / DEWAYNE: [id number] /
[2019-07-14 15:20] VITALS: BP 121/74; RESP 12; TEMP 98.4
--- NOTE | 2019-07-14 15:38 | P.DS ---
Providers Date of admission: 07/13/19 07:30 Expected date of discharge: 07/14/19 Attending physician: Krystin Black Primary care physician: Pacheco Bro Hospital Course: 48-year-old female who underwent robotic-assisted laparoscopic sleeve gastrectomy and cholecystectomy on 07/13/[address] Black. Patient is doing well postoperatively. Her pain is controlled on oral medications. Tolerating diet without nausea or vomiting. Vital signs have been stable. She is stable for discharge home today. Please see EMR for further hospital course details. Discharge diagnosis 1. Morbid obesity due to excess calories 2. Body mass index of 41.3, initial 3. Osteoarthritis of the knees. 4. Osteoarthritis of the lower back. 5. Hypertensive heart disease. 6. Gastroesophageal reflux disease 7. Hyperlipidemia 8. Obstructive sleep apnea 9. Diabetes type 2, non-insulin dependent 10. Hypothyroidism 11. Depressive disorder 12. Generalized anxiety disorder 13. Chronic cholecystitis 14. Fatty liver disease Nurse practitioner note has been reviewed by physician. Signing provider agrees with the documented findings, assessment, and plan of care. Plan - Discharge Summary Discharge Rx Participant: Yes New Discharge Prescriptions: New Bisacodyl [Dulcolax] 5 mg PO DAILY PRN #10 tablet.dr PRN Reason: Constipation Simethicone 40 mg/0.6 ml Drops [Mylicon Drops] 40 mg PO PCHS PRN #30 ml PRN Reason: gas Omeprazole 40 mg PO DAILY #30 cap Acetaminophen Oral Susp [Tylenol Oral Susp] 650 mg PO Q4H PRN #500 ml PRN Reason: Pain Ondansetron Odt [Zofran Odt] 4 mg PO Q8HR PRN #9 tab PRN Reason: Nausea Continue Levothyroxine Sodium [Synthroid] 150 mcg PO DAILY Citalopram Hydrobromide [Citalopram HBr] 60 mg PO DAILY Discontinued metFORMIN HCL 1,000 mg PO BID Semaglutide [Ozempic] 1 injection SQ WEEKLY Glimepiride [Amaryl] 4 mg PO BID Benazepril [Lotensin] 10 mg PO DAILY Ergocalciferol [Vitamin D2] 50,000 unit PO MO Atorvastatin [Lipitor] 40 mg PO DAILY Omeprazole 20 mg PO DAILY Empagliflozin [Jardiance] 25 mg PO DAILY Losartan [Cozaar] 100 mg PO DAILY Multivitamins, Thera [Multivitamin (formulary)] 1 tab PO DAILY Aspirin [Adult Low Dose Aspirin EC] 81 mg PO DAILY Discharge Medication List Levothyroxine Sodium [Synthroid] 150 mcg PO DAILY 05/11/15 [History] Citalopram Hydrobromide [Citalopram HBr] 60 mg PO DAILY 03/12/19 [History] Acetaminophen Oral Susp [Tylenol Oral Susp] 650 mg PO Q4H PRN #500 ml 07/14/19 [Rx] Bisacodyl [Dulcolax] 5 mg PO DAILY PRN #10 tablet. 07/14/19 [Rx] Omeprazole 40 mg PO DAILY #30 cap 07/14/19 [Rx] Ondansetron Odt [Zofran Odt] 4 mg PO Q8HR PRN #9 tab 07/14/19 [Rx] Simethicone 40 mg/0.6 ml Drops [Mylicon Drops] 40 mg PO PCHS PRN #30 ml 07/14/19 [Rx] Follow up [facility]ment(s[facility]Ref[facility] [place] [facility] - 07/17/19 10:00 am Activity/Diet/Wound Care/Special Instructions: No lifting over 4 pounds for 4 weeks You may shower. No bathtub soaks. Drink 64 ounces of fluid daily. Notify bariatric center for temperature over 101.0, increased pain, or drainage from incisions No straws or carbonated beverages. Liquid diet only. Sugar content should be less than 6 g to avoid dumping syndrome You may take milk of magnesia for constipation. Crush open or cut tablets larger than the size of a tic-tac
[2019-07-14 15:47] VITALS: PULSE 104
[2019-07-15] MEDS ORDERED: BISACODYL 5 MG TABLET.DR PO PRN (08:00)
== END 2019-07-14 17:57 | disposition home or self-care (01) | DRG 621 ==
LOC: 2ORMAIN 07:30 → 4SSUR 12:11
PROVIDERS: ADMIT Surgery Plastic and Reconstructive Surgery; ATTEND Surgery Plastic and Reconstructive Surgery
PROC: 0DJ08ZZ Inspection of Upper Intestinal Tract, Via Natural or Artificial Opening Endoscopic (ICD-10-PCS; principal; 2019-07-13 08:55)
PROC: 8E0W4CZ Robotic Assisted Procedure of Trunk Region, Percutaneous Endoscopic Approach (ICD-10-PCS; principal; 2019-07-13 08:55)
PROC: 0DB64Z3 Excision of Stomach, Percutaneous Endoscopic Approach, Vertical (ICD-10-PCS; principal; 2019-07-13 08:55)
PROC: 0FT44ZZ Resection of Gallbladder, Percutaneous Endoscopic Approach (ICD-10-PCS; principal; 2019-07-13 08:55)
DX: E66.01 Morbid (severe) obesity due to excess calories (principal); E11.9 Type 2 diabetes mellitus without complications; E03.9 Hypothyroidism, unspecified; E78.5 Hyperlipidemia, unspecified; F32.9 Major depressive disorder, single episode, unspecified; F41.1 Generalized anxiety disorder; G47.33 Obstructive sleep apnea (adult) (pediatric); I11.9 Hypertensive heart disease without heart failure; K21.9 Gastro-esophageal reflux disease without esophagitis; K76.0 Fatty (change of) liver, not elsewhere classified; K81.1 Chronic cholecystitis; K82.8 Other specified diseases of gallbladder; M17.0 Bilateral primary osteoarthritis of knee; M47.9 Spondylosis, unspecified; Z68.41 Body mass index [BMI] 40.0-44.9, adult; Z79.82 Long term (current) use of aspirin; Z79.84 Long term (current) use of oral hypoglycemic drugs; Z79.890 Hormone replacement therapy; Z79.899 Other long term (current) drug therapy; Z90.710 Acquired absence of both cervix and uterus
CPT/HCPCS: 74240; 80051; 82310; 82565; 83735; 84100; 84520; 85025; 86850; 86900; 86901; 88304; 88307; 94640; 94760; 94762

== ENCOUNTER → 2019-07-17 | Outpatient (CLI) | payer OTHER ==
[2019-07-17 10:44] VITALS: RESP 16; BMI 36.0
[2019-07-17 10:50] VITALS: BP 108/72; PULSE 102; TEMP 98.2
[2019-07-17] MEDS: SODIUM CHLORIDE 0.9% 1,000 ML IV SCH ×2 (10:54→11:49)
--- NOTE | 2019-07-17 11:03 | P.PN ---
Subjective Progress Note Date: 07/17/19 She is doing well since surgery. She is postoperative day 4. Tolerating some diet. Had mild nausea. Incisions no infection. Recommend IV fluid hydration. Dressing instructions were reviewed. Start protein shakes. Follow up in 1 week. Objective - Vital Signs Vital signs: Vital Signs Temp 98.2 F 07/17/19 10:47 Pulse 102 H 07/17/19 10:47 Resp 16 07/17/19 10:47 BP 108/72 07/17/19 10:47 Pulse Ox Intake & Output 07/16/19 07/17/19 07/17/19 18:59 06:59 18:59 Weight 89.358 kg
== END | disposition home or self-care (01) ==
LOC: BARWHC3 10:08
PROVIDERS: ATTEND Surgery Plastic and Reconstructive Surgery
DX: E86.0 Dehydration (principal)
CPT/HCPCS: 96360; 96361; 99211

== ENCOUNTER → 2019-07-23 | Outpatient (CLI) | payer OTHER ==
[2019-07-23 09:03] VITALS: BP 121/84; PULSE 109; RESP 16; TEMP 98.2; BMI 35.6
--- NOTE | 2019-07-23 09:39 | P.PN ---
Subjective Progress Note Date: 07/23/19 No heartburn. BSG under 120s. No GERD. She is doing well. Follow-up 1 month out Aug 12 Objective - Vital Signs Vital signs: Vital Signs Temp 98.2 F 07/23/19 09:00 Pulse 109 H 07/23/19 09:00 Resp 16 07/23/19 09:00 BP 121/84 07/23/19 09:00 Pulse Ox Intake & Output 07/22/19 07/23/19 07/23/19 18:59 06:59 18:59 Weight 88.451 kg
== END ==
LOC: BARWHC3 08:32
PROVIDERS: ATTEND Surgery Plastic and Reconstructive Surgery
DX: E66.01 Morbid (severe) obesity due to excess calories (principal)
CPT/HCPCS: 97802; 99211

== ENCOUNTER → 2019-08-10 | Outpatient (CLI) | payer OTHER ==
--- NOTE | 2019-08-13 10:44 | MM ---
Reason for exam: screening (asymptomatic). Last mammogram was performed 7 months ago. Physical Findings: A clinical breast exam by your physician is recommended on an annual basis and results should be correlated with mammographic findings. MG Screening Mammo w CAD Bilateral CC and MLO view(s) were taken. Prior study comparison: December 29, 2018, left breast MG diagnostic mammo LT w CAD. June 30, 2018, bilateral MG screening mammo w CAD. The breast tissue is heterogeneously dense. This may lower the sensitivity of mammography. There are benign appearing round calcifications in the right breast. ASSESSMENT: Benign, BI-RAD 2 RECOMMENDATION: Routine screening mammogram of both breasts in 1 year.
== END | disposition home or self-care (01) ==
LOC: RADMAMWWP 14:07
PROVIDERS: ATTEND Family Medicine
DX: Z12.31 Encounter for screening mammogram for malignant neoplasm of breast (principal)
CPT/HCPCS: 77067

== ENCOUNTER → 2019-08-26 | Outpatient (CLI) | payer BC, OTHER ==
--- NOTE | 2019-08-26 13:51 | P.PN ---
Subjective Progress Note Date: 08/26/19 DATE OF SERVICE: 08/26/2019 CHIEF COMPLAINT: Morbid obesity HISTORY OF PRESENT ILLNESS: Britt Carreno is a 48-year-old female who is status post sleeve gastrectomy and cholecystectomy, 07/13/2019. She is 1 month out. She denies any abdominal pain. No gastroesophageal reflux disease. She comes in with panniculitis of her apron. Her blood sugars have improved. At height of 5 feet 2 inches, her ideal body weight is 135 pounds. Highest 226 pounds, BMI 41.4. She comes in 181 pounds from 195 pounds, 1 month ago. She has lost 14 pounds in 1 month. Lifetime weight loss of 45 pounds. Percent lifetime excess weight loss of 50%. She is 46 pounds overweight. PHYSICAL EXAM: VITAL SIGNS: Height 5 foot 2 inches, weight 181 pounds. BMI 33.1 Vital Signs Temp 98.2 F 08/26/19 14:22 Pulse 82 08/26/19 14:22 Resp BP 128/85 08/26/19 14:22 Pulse Ox GENERAL: Well-developed in no acute distress. HEENT: No scleral icterus. Extraocular movements grossly intact. Hears conversational speech. No nasal drainage. NECK: Supple without lymphadenopathy. CHEST: Nonlabored respirations with equal bilateral excursions. CARDIOVASCULAR: Regular rate and rhythm. Distal 2+ pulses. ABDOMEN: Nontender. No peritonitis MUSCULOSKELETAL: No clubbing, cyanosis. NEURO: No focal or lateralizing signs. Cranial nerves 2 through 12 grossly within normal limits. PSYCH: Appropriate affect. Alert and oriented to person, place and time. SKIN: Good skin turgor. Well perfused. ASSESSMENT: 1. Morbid obesity due to excess calories 2. Body mass index of 41.3 to 33.1 3. Osteoarthritis of the knees. 4. Osteoarthritis of the lower back. 5. Hypertensive heart disease. 6. Gastroesophageal reflux disease 7. Hyperlipidemia 8. Obstructive sleep apnea 9. Diabetes type 2, non-insulin dependent 10. Hypothyroidism 11. Depressive disorder 12. Generalized anxiety disorder 13. Status post sleeve gastrectomy 14. Status post cholecystectomy 15. Panniculitis PLAN: 1. Recommend bariatric labs 2. Follow up in October 2019. 3. Nystatin powder prescribed for panniculitis
[2019-08-26 14:27] VITALS: BP 128/85; PULSE 82; TEMP 98.2; BMI 33.0
== END | disposition home or self-care (01) ==
LOC: BARWHC3 13:07
PROVIDERS: ATTEND Surgery Plastic and Reconstructive Surgery
DX: E66.01 Morbid (severe) obesity due to excess calories (principal); Z68.33 Body mass index [BMI] 33.0-33.9, adult; M17.0 Bilateral primary osteoarthritis of knee; M47.816 Spondylosis without myelopathy or radiculopathy, lumbar region; I11.9 Hypertensive heart disease without heart failure; K21.9 Gastro-esophageal reflux disease without esophagitis; E78.5 Hyperlipidemia, unspecified; G47.33 Obstructive sleep apnea (adult) (pediatric); E11.9 Type 2 diabetes mellitus without complications; E03.9 Hypothyroidism, unspecified; F32.9 Major depressive disorder, single episode, unspecified; F41.1 Generalized anxiety disorder; M79.3 Panniculitis, unspecified; Z98.84 Bariatric surgery status; Z90.49 Acquired absence of other specified parts of digestive tract
CPT/HCPCS: 97803; 99211

== ENCOUNTER → 2019-09-12 | Outpatient (CLI) | payer BC, OTHER ==
[2019-09-12 12:30] LABS: HCT 42.8 % (34.0-46.0); MCH 28.4 pg (25.0-35.0); MCHC 32.7 g/dL (31.0-37.0); MCV 86.9 fL (80.0-100.0); Mean Platelet Volume 8.3; Platelet Count 205 k/uL (150-450); RBC 4.92 m/uL (3.80-5.40); RDW 13.5 % (11.5-15.5); WBC 6.1 k/uL (3.8-10.6)
[2019-09-12 12:44] LABS: Partial Thromboplastin Time 23.7 sec (22.0-30.0); Prothrombin Time 10.2 sec (9.0-12.0)
[2019-09-12 22:59] LABS: % Iron Saturation 32.13 (12.00-45.00); ALT 22 U/L (8-44); AST 22 U/L (13-35); African American GFR (CKD) 119.6 (60.0-200.0); Alkaline Phosphatase 66 U/L (41-126); BUN/Creat Ratio 18.57 Ratio (12.00-20.00); Calcium 9.6 mg/dL (8.7-10.3); Chloride 109 mmol/L (96-109); Chol/HDL Ratio 4.04; Cholesterol 218 mg/dL (0-200); Glucose 123 mg/dL (70-110); Iron 98 ug/dL (50-170); LDL Cholesterol,Calculated 143.2 mg/dL (0.0-131.0); Non-African American GFR(CKD) 103.2 (60.0-200.0); Phosphorus 3.7 mg/dL (2.4-5.1); Potassium 4.5 mmol/L (3.5-5.5); Sodium 143 mmol/L (135-145); Total Bilirubin 0.5 mg/dL (0.3-1.2); Total Iron Binding Capacity 305 ug/dL (228-460); Total Protein 6.4 g/dL (6.2-8.2)
[2019-09-12 23:10] LABS: Ferritin 87.8 ng/mL (10.0-291.0)
[2019-09-12 23:12] LABS: Folate, Serum >24.0 ng/mL
[2019-09-12 23:50] LABS: Hemoglobin A1C 6.3 % (4.0-6.0)
[2019-09-15 07:20] LABS: Vitamin A 39 ug/dL (38-106)
== END ==
LOC: LABWHC1 11:55
PROVIDERS: ATTEND Surgery Plastic and Reconstructive Surgery
DX: E66.01 Morbid (severe) obesity due to excess calories (principal); E21.1 Secondary hyperparathyroidism, not elsewhere classified; E89.1 Postprocedural hypoinsulinemia; D50.9 Iron deficiency anemia, unspecified; E44.0 Moderate protein-calorie malnutrition; E55.9 Vitamin D deficiency, unspecified; K74.1 Hepatic sclerosis; N19 Unspecified kidney failure; K50.90 Crohn's disease, unspecified, without complications
CPT/HCPCS: 36415; 80053; 80061; 82306; 82525; 82607; 82728; 82746; 83036; 83540; 83550; 83735; 83970; 84100; 84134; 84255; 84425; 84443; 84590; 84630; 85027; 85610; 85730

== ENCOUNTER → 2019-11-18 | Outpatient (CLI) | payer BC, OTHER ==
[2019-11-18 13:45] VITALS: BP 111/76; PULSE 108; RESP 16; TEMP 98.1; BMI 29.9
--- NOTE | 2019-11-18 14:24 | P.PN ---
Subjective Progress Note Date: 11/18/19 DATE OF SERVICE: 11/18/2019 CHIEF COMPLAINT: Morbid obesity HISTORY OF PRESENT ILLNESS: Britt Carreno is a 49-year-old female who is status post sleeve gastrectomy and cholecystectomy, 07/13/2019. She is 4 months out. She is off all of her medications for diabetes. No GERD. No abdominal pain. At height of 5 feet 2 inches, her ideal body weight is 135 pounds. Highest 226 pounds, BMI 41.4. She comes in 163 pounds from 181 pounds, 3 months ago. She has lost 17 pounds in 3 months. Lifetime weight loss of 63 pounds. Percent lifetime excess weight loss of 69%. She is 28 pounds overweight. PHYSICAL EXAM: VITAL SIGNS: Height 5 foot 2 inches, weight 163 pounds. BMI 29.9 Vital Signs Temp 98.1 F 11/18/19 13:41 Pulse 108 H 11/18/19 13:41 Resp 16 11/18/19 13:41 BP 111/76 11/18/19 13:41 Pulse Ox Intake & Output 11/18/19 11/19/19 11/19/19 18:59 06:59 18:59 Weight 74.162 kg GENERAL: Well-developed in no acute distress. HEENT: No scleral icterus. Extraocular movements grossly intact. Hears conversational speech. No nasal drainage. NECK: Supple without lymphadenopathy. CHEST: Nonlabored respirations with equal bilateral excursions. CARDIOVASCULAR: Distal 2+ pulses. ABDOMEN: Nontender. No peritonitis. No hernia. MUSCULOSKELETAL: No clubbing, cyanosis. NEURO: No focal or lateralizing signs. Cranial nerves 2 through 12 grossly within normal limits. PSYCH: Appropriate affect. Alert and oriented to person, place and time. SKIN: Good skin turgor. Well perfused. LABS: Reviewed with TSH suppressed. Hemoglobin A1c improved from over 9.0-6.3 ASSESSMENT: 1. Morbid obesity due to excess calories 2. Body mass index of 41.3 to 29.9 3. Osteoarthritis of the knees. 4. Osteoarthritis of the lower back. 5. Hypertensive heart disease. 6. Gastroesophageal reflux disease 7. Hyperlipidemia 8. Obstructive sleep apnea 9. Diabetes type 2, non-insulin dependent 10. Hypothyroidism 11. Depressive disorder 12. Generalized anxiety disorder 13. Status post sleeve gastrectomy 14. Status post cholecystectomy 15. Panniculitis 16. Hair loss PLAN: 1. Recommend bariatric labs 2. Recommend increase protein intake 75 g daily 3. For hair loss, patient advised to take thyroid medication separately from antidepressant including multivitamins. Increase protein intake should also improve hair loss. Objective - Vital Signs Vital signs: Vital Signs Temp 98.1 F 11/18/19 13:41 Pulse 108 H 11/18/19 13:41 Resp 16 11/18/19 13:41 BP 111/76 11/18/19 13:41 Pulse Ox Intake & Output 11/17/19 11/18/19 11/18/19 18:59 06:59 18:59 Weight 74.162 kg
== END | disposition home or self-care (01) ==
LOC: BARWHC3 13:26
PROVIDERS: ATTEND Surgery Plastic and Reconstructive Surgery
DX: Z48.815 Encounter for surgical aftercare following surgery on the digestive system (principal); E66.01 Morbid (severe) obesity due to excess calories; M17.0 Bilateral primary osteoarthritis of knee; I11.9 Hypertensive heart disease without heart failure; K21.9 Gastro-esophageal reflux disease without esophagitis; E78.5 Hyperlipidemia, unspecified; G47.33 Obstructive sleep apnea (adult) (pediatric); E11.9 Type 2 diabetes mellitus without complications; E03.9 Hypothyroidism, unspecified; L65.9 Nonscarring hair loss, unspecified; F41.8 Other specified anxiety disorders; M79.3 Panniculitis, unspecified; Z68.29 Body mass index [BMI] 29.0-29.9, adult; Z98.84 Bariatric surgery status; Z90.49 Acquired absence of other specified parts of digestive tract
CPT/HCPCS: 97803; 99211

== ENCOUNTER → 2019-11-27 | Outpatient (CLI) | payer BC, OTHER ==
[2019-11-27 12:36] LABS: INR 0.9 (<1.2); Partial Thromboplastin Time 23.1 sec (22.0-30.0); Prothrombin Time 9.8 sec (9.0-12.0)
[2019-11-27 13:23] LABS: HCT 40.7 % (34.0-46.0); HGB 13.7 gm/dL (11.4-16.0); MCH 28.1 pg (25.0-35.0); MCHC 33.5 g/dL (31.0-37.0); MCV 83.7 fL (80.0-100.0); Mean Platelet Volume 7.9; Platelet Count 226 k/uL (150-450); RBC 4.86 m/uL (3.80-5.40); RDW 12.6 % (11.5-15.5); WBC 6.7 k/uL (3.8-10.6)
[2019-11-27 18:20] LABS: % Iron Saturation 19.75 (12.00-45.00); ALT 17 U/L (8-44); AST 18 U/L (13-35); African American GFR (CKD) 118.7 (60.0-200.0); Albumin/Globulin Ratio 1.79 (1.60-3.17); Alkaline Phosphatase 72 U/L (41-126); BUN/Creat Ratio 21.43 Ratio (12.00-20.00); Calcium 9.7 mg/dL (8.7-10.3); Carbon Dioxide 27.9 mmol/L (21.6-31.8); Chloride 108 mmol/L (96-109); Chol/HDL Ratio 4.18; Cholesterol 213 mg/dL (0-200); Globulin 2.4 g/dL (1.6-3.3); Glucose 120 mg/dL (70-110); Iron 63 ug/dL (50-170); LDL Cholesterol,Calculated 142.6 mg/dL (0.0-131.0); Magnesium 1.8 mg/dL (1.5-2.4); Non-African American GFR(CKD) 102.5 (60.0-200.0); Phosphorus 3.9 mg/dL (2.4-5.1); Potassium 3.6 mmol/L (3.5-5.5); Sodium 148 mmol/L (135-145); Total Bilirubin 0.4 mg/dL (0.3-1.2); Total Iron Binding Capacity 319 ug/dL (228-460); Total Protein 6.7 g/dL (6.2-8.2)
[2019-11-27 18:44] LABS: Folate, Serum >24.0 ng/mL
[2019-11-27 21:55] LABS: Hemoglobin A1C 6.2 % (4.0-6.0)
[2019-11-30 12:46] LABS: Zinc, Serum 78 ug/dL (60-130)
[2019-12-01 07:25] LABS: Vitamin A 35 ug/dL (38-106)
[2019-12-01 08:21] LABS: Vit B1(Thiamine) 46 ug/L (38-122)
== END | disposition home or self-care (01) ==
LOC: LABWHC1 11:31
PROVIDERS: ATTEND Surgery Plastic and Reconstructive Surgery
DX: E21.1 Secondary hyperparathyroidism, not elsewhere classified (principal); E89.1 Postprocedural hypoinsulinemia; D50.9 Iron deficiency anemia, unspecified; E55.9 Vitamin D deficiency, unspecified; K74.1 Hepatic sclerosis; N19 Unspecified kidney failure; K50.00 Crohn's disease of small intestine without complications; E66.01 Morbid (severe) obesity due to excess calories; K90.9 Intestinal malabsorption, unspecified
CPT/HCPCS: 36415; 80053; 80061; 82306; 82525; 82607; 82728; 82746; 83036; 83540; 83550; 83735; 83970; 84100; 84134; 84255; 84425; 84443; 84590; 84630; 85027; 85610; 85730

== ENCOUNTER → 2020-09-14 | Outpatient (CLI) | payer BC, OTHER ==
[2020-09-14 13:49] VITALS: BP 124/65; PULSE 76; RESP 18; TEMP 98.1; BMI 29.0
--- NOTE | 2020-09-14 14:20 | P.PN ---
Subjective Progress Note Date: 09/14/20 DATE OF SERVICE: 09/14/2020 CHIEF COMPLAINT: Status post sleeve gastrectomy HISTORY OF PRESENT ILLNESS: Britt Carreno is a 49-year-old female status post sleeve gastrectomy and cholecystectomy, 07/13/2019. She is over 1 year out. She comes in with more weight loss. She is doing well. She denies g astroesophageal reflux disease. She is on no new medications. She reports she is due for her yearly physical with her primary care provider. She comes in with a new concern regarding her excess skin along her pannus. She denies any previous treatment for panniculitis other than local skin care with [id number] topical treatments. As a result of the pulling sensation from her pannus, she reports lower back pain from it. She presents in consultation for panniculitis. At height of 5 feet 2 inches, her ideal body weight is 135 pounds. Highest 226 pounds, BMI 41.4. She comes in 159 pounds from 163 pounds, 10 months ago. She has lost 5 pounds in 10 months. Lifetime weight loss of 67 pounds. Percent lifetime excess weight loss of 74%. She is 24 pounds overweight. PAST MEDICAL HISTORY: 1. Morbid obesity due to excess calories 2. Body mass index of 41.3 3. Osteoarthritis of the knees. 4. Osteoarthritis of the lower back. 5. Hypertensive heart disease. 6. Gastroesophageal reflux disease 7. Hyperlipidemia 8. Obstructive sleep apnea 9. Diabetes type 2, non-insulin dependent 10. Hypothyroidism 11. Depressive disorder 12. Generalized anxiety disorder PAST SURGICAL HISTORY: 1. Tubal ligation 2. Upper endoscopy 3. Hysterectomy HOME MEDICATIONS: Home Medications Medication Instructions Recorded Confirmed Levothyroxine Sodium [Synthroid] 150 mcg PO DAILY 05/11/15 09/15/20 Citalopram Hydrobromide 60 mg PO DAILY 03/12/19 09/15/20 [Citalopram HBr] Calcium Citrate 600 mg PO BID 08/26/19 09/15/20 Magnesium 200 mg PO DAILY 08/26/19 09/15/20 Multivitamins, Thera [Multivitamin 1 tab PO DAILY 08/26/19 09/15/20 (formulary)] Cholecalciferol [Vitamin D3 (25 50,000 unit PO QMONTH 09/16/19 09/15/20 Mcg = 1000 Iu)] Previous Rx's Medication Instructions Recorded Omeprazole 40 mg PO DAILY #30 cap 07/14/19 Nystatin 100,000 Unit/gm Powd 1 applic TOPICAL BID #60 powder 08/26/19 [Mycostatin Powder] Nystatin 100,000 Unit/gm Powd 1 applic TOPICAL BID #60 powder 09/14/20 [Mycostatin Powder] ALLERGIES: Allergies Allergy/AdvReac Type Severity Reaction Status Date / Time No Known Allergies Allergy Verified 09/15/20 12:00 SOCIAL HISTORY: No past tobacco use. FAMILY HISTORY: No family history of ulcerative colitis disease or Crohn's disease. Family history of morbid obesity. No lupus in the family. No reports of stomach or esophageal cancer. REVIEW OF ORGAN SYSTEMS: CONSTITUTIONAL: At height of 5 feet 2 inches, her ideal body weight is 135 pound s. She comes in 226 pounds. Her body mass index was 41.3. She was 91 pounds overweight. HEENT: Denies any active troubles with vision or hearing. No troubles with swallowing. ENDOCRINE: Has diabetes. No hypothyroidism. CARDIOVASCULAR: No past reports of palpitations or heart attacks or chest pain. RESPIRATORY: Has daytime somnolence. No asthma. GASTROINTESTINAL: Denies any bright red blood per rectum. No diarrhea. No constipation. MUSCULOSKELETAL: Has lower back pain and joint pain. Has osteoarthritis of the knees. NEURO: No headaches. No seizure disorders. PSYCH: Has depression. No suicidal ideation. RHEUMATOLOGIC: No lupus. No rheumatoid arthritis. HEMATOLOGIC: Denies any abnormal bleeding or bruising. No personal history of DVTs. SKIN: No rash. No skin cancer. PHYSICAL EXAM: VITAL SIGNS: Height 5 foot 2 inches, weight 159 pounds. BMI 29.1 Vital Signs Temp 98.1 F 09/14/20 13:46 Pulse 76 09/14/20 13:46 Resp 18 09/14/20 13:46 BP 124/65 09/14/20 13:46 Pulse Ox GENERAL: Well-developed in no acute distress. HEENT: No scleral icterus. Extraocular movements grossly intact. Hears conversational speech. No nasal drainage. NECK: Supple without lymphadenopathy. CHEST: Nonlabored respirations with equal bilateral excursions. CARDIOVASCULAR: Distal 2+ pulses. ABDOMEN: Nontender. No peritonitis. Grade 2 panniculosis with 5 to 10 pounds pannus. MUSCULOSKELETAL: No clubbing, cyanosis. NEURO: No focal or lateralizing signs. Cranial nerves 2 through 12 grossly within normal limits. PSYCH: Appropriate affect. Alert and oriented to person, place and time. SKIN: Good skin turgor. Well perfused. ASSESSMENT: 1. Morbid obesity due to excess calories 2. Body mass index of 41.3 to 29.1 3. Osteoarthritis of the knees. 4. Osteoarthritis of the lower back. 5. Hypertensive heart disease. 6. Gastroesophageal reflux disease 7. Hyperlipidemia 8. Obstructive sleep apnea 9. Diabetes type 2, non-insulin dependent 10. Hypothyroidism 11. Depressive disorder 12. Generalized anxiety disorder 13. Status post sleeve gastrectomy 14. Status post cholecystectomy 15. Panniculitis PLAN: 1. She comes in with more weight loss and is over 1 year out. Need for stable weight loss is described. 2. Nystatin powder prescribed for panniculitis. 3. Recommend referral to typewriter tester for management for panniculitis. 4. Recommend bariatric labs and correction of nutritional deficiencies. Objective - Vital Signs Vital signs: Vital Signs Temp 98.1 F 09/14/20 13:46 Pulse 76 09/14/20 13:46 Resp 18 09/14/20 13:46 BP 124/65 09/14/20 13:46 Pulse Ox Intake & Output 09/13/20 09/14/20 09/14/20 18:59 06:59 18:59 Weight 72.121 kg - Labs CBC & Chem 7: 09/14/20 14:54 09/14/20 14:54
[2020-09-14 15:24] LABS: HCT 39.3 % (34.0-46.0); HGB 13.5 gm/dL (11.4-16.0); MCH 28.7 pg (25.0-35.0); MCHC 34.5 g/dL (31.0-37.0); MCV 83.2 fL (80.0-100.0); Mean Platelet Volume 7.9; Platelet Count 184 k/uL (150-450); RBC 4.72 m/uL (3.80-5.40); RDW 13.1 % (11.5-15.5); WBC 6.2 k/uL (3.8-10.6)
[2020-09-14 21:04] LABS: Hemoglobin A1C 5.3 % (4.0-6.0)
[2020-09-15 00:03] LABS: INR 0.95 (0.90-1.11); Partial Thromboplastin Time 25.3 sec (23.5-31.0); Prothrombin Time 10.4 sec (9.9-11.9)
[2020-09-15 01:35] LABS: % Iron Saturation 26.43 (12.00-45.00); ALT 15 U/L (8-44); AST 18 U/L (13-35); African American GFR (CKD) 124.9 (60.0-200.0); Alkaline Phosphatase 72 U/L (41-126); Calcium 9.7 mg/dL (8.7-10.3); Carbon Dioxide 27.3 mmol/L (21.6-31.8); Chloride 107 mmol/L (96-109); Chol/HDL Ratio 3.12; Cholesterol 209 mg/dL (0-200); Globulin 2.2 g/dL (1.6-3.3); Glucose 87 mg/dL (70-110); Iron 83 ug/dL (50-170); LDL Cholesterol,Calculated 127.2 mg/dL (0.0-131.0); Non-African American GFR(CKD) 107.8 (60.0-200.0); Phosphorus 3.7 mg/dL (2.4-5.1); Potassium 4.3 mmol/L (3.5-5.5); Sodium 142 mmol/L (135-145); Total Bilirubin 0.5 mg/dL (0.3-1.2); Total Iron Binding Capacity 314 ug/dL (228-460); Total Protein 6.6 g/dL (6.2-8.2)
[2020-09-15 01:44] LABS: Ferritin 46.8 ng/mL (10.0-291.0)
[2020-09-15 01:49] LABS: Folate, Serum >24.0 ng/mL
[2020-09-16 06:42] LABS: Vitamin A 32 ug/dL (38-106)
[2020-09-16 12:09] LABS: Zinc, Serum 66 ug/dL (60-130)
[2020-09-18 17:58] LABS: Selenium 93 mcg/L (63-160)
[2020-09-19 08:22] LABS: Vit B1(Thiamine) 69 ug/L (38-122)
== END | disposition home or self-care (01) ==
LOC: BARWHC3 13:16
PROVIDERS: ATTEND Surgery Plastic and Reconstructive Surgery
DX: E66.01 Morbid (severe) obesity due to excess calories (principal); M17.0 Bilateral primary osteoarthritis of knee; M47.9 Spondylosis, unspecified; I11.9 Hypertensive heart disease without heart failure; K21.9 Gastro-esophageal reflux disease without esophagitis; E78.5 Hyperlipidemia, unspecified; G47.33 Obstructive sleep apnea (adult) (pediatric); E11.9 Type 2 diabetes mellitus without complications; E03.9 Hypothyroidism, unspecified; F32.9 Major depressive disorder, single episode, unspecified; M79.3 Panniculitis, unspecified; F41.9 Anxiety disorder, unspecified; Z98.84 Bariatric surgery status; Z90.49 Acquired absence of other specified parts of digestive tract; Z68.29 Body mass index [BMI] 29.0-29.9, adult; Z79.899 Other long term (current) drug therapy; Z79.890 Hormone replacement therapy
CPT/HCPCS: 84255; 84134; 84425; 80061; 80053; 82607; 82728; 82525; 82746; 83540; 83550; 83735; 84100; 84443; 84590; 84630; 85027; 85610; 85730; 82306; 83970; 83036; 36415; G0463; 99211

== ENCOUNTER → 2020-10-26 | Outpatient (CLI) | payer OTHER ==
[2020-10-26 15:11] VITALS: BP 135/76; PULSE 86; RESP 18; TEMP 98.1; BMI 29.1
--- NOTE | 2020-10-26 15:34 | P.PN ---
Subjective Progress Note Date: 10/26/20 DATE OF SERVICE: 10/26/2020 CHIEF COMPLAINT: Status post sleeve gastrectomy HISTORY OF PRESENT ILLNESS: Britt Carreno is a 49-year-old female status post sleeve gastrectomy and cholecystectomy, 07/13/2019. She is 2 years out from her bariatric procedure. She reports chronic panniculitis including troubles with her activities of daily living such as confirming, hygiene. She reports pulling sensation along the lower back from her pannus. She is looking into panniculectomy. At height of 5 feet 2 inches, her ideal body weight is 135 pounds. Highest 226 pounds, BMI 41.4. She comes in 159 pounds unchanged in 1 month. Lifetime weight loss of 67 pounds. Percent lifetime excess weight loss of 74%. She is 24 pounds overweight. PAST MEDICAL HISTORY: 1. Morbid obesity due to excess calories 2. Body mass index of 41.3 3. Osteoarthritis of the knees. 4. Osteoarthritis of the lower back. 5. Hypertensive heart disease. 6. Gastroesophageal reflux disease 7. Hyperlipidemia 8. Obstructive sleep apnea 9. Diabetes type 2, non-insulin dependent 10. Hypothyroidism 11. Depressive disorder 12. Generalized anxiety disorder PAST SURGICAL HISTORY: 1. Tubal ligation 2. Upper endoscopy 3. Hysterectomy HOME MEDICATIONS: Home Medications Medication Instructions Recorded Confirmed Levothyroxine Sodium [Synthroid] 150 mcg PO DAILY 05/11/15 09/15/20 Citalopram Hydrobromide 60 mg PO DAILY 03/12/19 09/15/20 [Citalopram HBr] Calcium Citrate 600 mg PO BID 08/26/19 09/15/20 Magnesium 200 mg PO DAILY 08/26/19 09/15/20 Multivitamins, Thera [Multivitamin 1 tab PO DAILY 08/26/19 09/15/20 (formulary)] Cholecalciferol [Vitamin D3 (25 50,000 unit PO QMONTH 09/16/19 09/15/20 Mcg = 1000 Iu)] Previous Rx's Medication Instructions Recorded Omeprazole 40 mg PO DAILY #30 cap 07/14/19 Nystatin 100,000 Unit/gm Powd 1 applic TOPICAL BID #60 powder 08/26/19 [Mycostatin Powder] Nystatin 100,000 Unit/gm Powd 1 applic TOPICAL BID #60 powder 09/14/20 [Mycostatin Powder] ALLERGIES: Allergies Allergy/AdvReac Type Severity Reaction Status Date / Time No Known Allergies Allergy Verified 09/15/20 12:00 SOCIAL HISTORY: No past tobacco use. FAMILY HISTORY: No family history of ulcerative colitis disease or Crohn's disease. Family history of morbid obesity. No lupus in the family. No reports of stomach or esophageal cancer. REVIEW OF ORGAN SYSTEMS: CONSTITUTIONAL: At height of 5 feet 2 inches, her ideal body weight is 135 pounds. She comes in 226 pounds. Her body mass index was 41.3. She was 91 pounds overweight. HEENT: Denies any active troubles with vision or hearing. No troubles with swallowing. ENDOCRINE: Has diabetes. No hypothyroidism. CARDIOVASCULAR: No past reports of palpitations or heart attacks or chest pain. RESPIRATORY: Has daytime somnolence. No asthma. GASTROINTESTINAL: Denies any bright red blood per rectum. No diarrhea. No constipation. MUSCULOSKELETAL: Has lower back pain and joint pain. Has osteoarthritis of the knees. NEURO: No headaches. No seizure disorders. PSYCH: Has depression. No suicidal ideation. RHEUMATOLOGIC: No lupus. No rheumatoid arthritis. HEMATOLOGIC: Denies any abnormal bleeding or bruising. No personal history of DVTs. SKIN: No skin cancer. Has panniculitis. PHYSICAL EXAM: VITAL SIGNS: Height 5 foot 2 inches, weight 159 pounds. BMI 29.1 Vital Signs Temp 98.1 F 10/26/20 15:04 Pulse 86 10/26/20 15:04 Resp 18 10/26/20 15:04 BP 135/76 10/26/20 15:04 Pulse Ox GENERAL: Well-developed in no acute distress. HEENT: No scleral icterus. Extraocular movements grossly intact. Hears conversational speech. No nasal drainage. NECK: Supple without lymphadenopathy. CHEST: Nonlabored respirations with equal bilateral excursions. CARDIOVASCULAR: Distal 2+ pulses. ABDOMEN: Nontender. No peritonitis. Grade 3 panniculosis with 10 pounds pannus. MUSCULOSKELETAL: No clubbing, cyanosis. NEURO: No focal or lateralizing signs. Cranial nerves 2 through 12 grossly within normal limits. PSYCH: Appropriate affect. Alert and oriented to person, place and time. SKIN: Good skin turgor. Well perfused. LABS: Vitamin A is low. Cholesterol is elevated. EKG: Abnormal EKG from 2019 with prolonged QT interval ASSESSMENT: 1. Morbid obesity due to excess calories 2. Body mass index of 41.3 to 29.1 3. Osteoarthritis of the knees. 4. Osteoarthritis of the lower back. 5. Hypertensive heart disease. 6. Gastroesophageal reflux disease 7. Hyperlipidemia 8. Obstructive sleep apnea 9. Diabetes type 2, non-insulin dependent 10. Hypothyroidism 11. Depressive disorder 12. Generalized anxiety disorder 13. Status post sleeve gastrectomy 14. Status post cholecystectomy 15. Panniculitis 16. Abnormal EKG PLAN: 1. Recommend referral to company truck driver for management of panniculitis. 2. Recommend in the interim continue treatment with nystatin powder. 3. Overall, her weight has been stable since her bariatric procedure beyond 1 year. 4. Recommend updated EKG. Recommend cardiac risk assessment for previous history of abnormal EKG 5. Panniculectomy described for correction of functional deficits. She is elevated risk due With cardiac abnormalities including abnormal EKG. Objective - Vital Signs Vital signs: Vital Signs Temp 98.1 F 10/26/20 15:04 Pulse 86 10/26/20 15:04 Resp 18 10/26/20 15:04 BP 135/76 10/26/20 15:04 Pulse Ox Intake & Output 10/25/20 10/26/20 10/26/20 18:59 06:59 18:59 Weight 72.257 kg
== END ==
LOC: BARWHC3 14:02
PROVIDERS: ATTEND Surgery Plastic and Reconstructive Surgery
DX: E66.01 Morbid (severe) obesity due to excess calories (principal); M17.10 Unilateral primary osteoarthritis, unspecified knee; M47.816 Spondylosis without myelopathy or radiculopathy, lumbar region; I11.9 Hypertensive heart disease without heart failure; K21.9 Gastro-esophageal reflux disease without esophagitis; E78.5 Hyperlipidemia, unspecified; G47.33 Obstructive sleep apnea (adult) (pediatric); E11.9 Type 2 diabetes mellitus without complications; E03.9 Hypothyroidism, unspecified; F32.9 Major depressive disorder, single episode, unspecified; F41.9 Anxiety disorder, unspecified; M79.3 Panniculitis, unspecified; R94.31 Abnormal electrocardiogram [ECG] [EKG]; Z68.29 Body mass index [BMI] 29.0-29.9, adult; Z98.84 Bariatric surgery status; Z90.49 Acquired absence of other specified parts of digestive tract; Z79.890 Hormone replacement therapy; Z79.899 Other long term (current) drug therapy
CPT/HCPCS: 99211

== ENCOUNTER 2023-10-19 14:47 | Inpatient (IN) | payer OTHER ==
--- NOTE | 2023-10-19 16:02 | ED ---
Abdominal Pain HPI - General Chief Complaint: Abdominal Pain Stated Complaint: Severe stomach cramps Time Seen by Provider: 10/19/23 15:21 Source: patient, RN notes reviewed, old records reviewed Mode of arrival: ambulatory Limitations: no limitations - History of Present Illness Initial Comments: This 52-year-old female to the ER for evaluation abdominal pain today. Patient has history of gastric sleeve in cholecystectomy coming in for evaluation of abdominal pain discomfort bloating feels that he could be rolled her heart at times but also part of her abdomen. Positive nausea and vomiting. No fevers no chills no sick contacts no other complaints MD Complaint: abdominal pain, other (Nausea vomiting) -: days(s) Location: diffuse, periumbilical, epigastric, suprapubic Radiation: epigastric, suprapubic Migration to: no migration Severity: mild Severity scale (1-10): 3 Quality: cramping, stabbing Consistency: constant Improves With: nothing Worsens With: nothing Associated Symptoms: nausea, vomiting Treatments Prior to Arrival: other (0) - Related Data Home Medications Medication Instructions Recorded Confirmed Citalopram Hydrobromide 40 mg PO DAILY 03/12/19 10/19/23 [Citalopram HBr] HYDROcodone/APAP 5-325MG [[place] 1 tab PO HS PRN 02/14/22 10/19/23 5-325] Cholecalciferol (Vitamin D3) 1,250 mcg PO QMONTHLY 10/19/23 10/19/23 [Vitamin D3 (1250 Mcg = 50,000 Iu)] Fexofenadine HCl [Zhane Allergy] 180 mg PO DAILY 10/19/23 10/19/23 Gabapentin [Neurontin] 300 mg PO HS 10/19/23 10/19/23 Levothyroxine Sodium [Synthroid] 112 mcg PO DAILY 10/19/23 10/19/23 Phentermine HCl [Adipex-P] 37.5 mg PO DIRECTED 10/19/23 10/19/23 Previous Rx's Medication Instructions Recorded Omeprazole 40 mg PO DAILY #30 cap 07/14/19 Ondansetron Odt [Zofran ODT] 4 mg PO Q8HR PRN #20 tab 10/19/23 Allergies Allergy/AdvReac Type Severity Reaction Status Date / Time No Known Allergies Allergy Verified 10/19/23 20:33 Review of Systems ROS Statement: Those systems with pertinent positive or pertinent negative responses have been documented in the HPI. ROS Other: All systems not noted in ROS Statement are negative. Past Medical History Past Medical History: Diabetes Mellitus, Hyperlipidemia, Thyroid Disorder History of Any Multi-Drug Resistant Organisms: None Reported Past Surgical History: Bariatric Surgery, Cholecystectomy, Hysterectomy, Tubal Ligation Additional Past Surgical History / Comment(s): Gastric Sleeve 07/13/19 Past Anesthesia/Blood Transfusion Reactions: No Reported Reaction Past Psychological History: Anxiety Smoking Status: Never smoker Past Alcohol Use History: None Reported Past Drug Use History: None Reported - Past Family History Mother Additional Family Medical History / Comment(s): hypoglycemia Father Family Medical History: Congestive Heart Failure (CHF) General Exam Limitations: no limitations General appearance: alert, in no apparent distress Head exam: Present: atraumatic, normocephalic, normal inspection Eye exam: Present: normal appearance, PERRL, EOMI. Absent: scleral icterus, conjunctival injection, periorbital swelling ENT exam: Present: normal exam, mucous membranes moist Neck exam: Present: normal inspection. Absent: tenderness, meningismus, lymphadenopathy Respiratory exam: Present: normal lung sounds bilaterally. Absent: respiratory distress, wheezes, rales, rhonchi, stridor Cardiovascular Exam: Present: regular rate, normal rhythm, normal heart sounds. Absent: systolic murmur, diastolic murmur, rubs, gallop, clicks GI/Abdominal exam: Present: soft, normal bowel sounds. Absent: distended, tenderness, guarding, rebound, rigid Extremities exam: Present: normal inspection, full ROM, normal capillary refill. Absent: tenderness, pedal edema, joint swelling, calf tenderness Back exam: Present: normal inspection Neurological exam: Present: alert, oriented X3, CN II-XII intact Psychiatric exam: Present: normal affect, normal mood Skin exam: Present: warm, dry, intact, normal color. Absent: rash Course Vital Signs 10/19/23 10/19/23 10/19/23 14:58 15:18 15:21 Temperature 98.3 F 97.6 F Pulse Rate 82 82 Respiratory 18 18 Rate Blood Pressure 172/82 O2 Sat by Pulse 100 98 100 Oximetry 10/19/23 10/19/23 10/19/23 16:00 17:00 18:00 Temperature Pulse Rate 84 82 84 Respiratory 18 18 18 Rate Blood Pressure 127/64 115/65 112/72 O2 Sat by Pulse 100 98 98 Oximetry 10/19/23 10/19/23 10/19/23 19:00 20:00 20:17 Temperature 98.4 F Pulse Rate 84 85 93 Respiratory 18 18 18 Rate Blood Pressure 114/68 124/78 124/78 O2 Sat by Pulse 98 97 Oximetry 10/19/23 21:00 Temperature Pulse Rate 80 Respiratory 18 Rate Blood Pressure 117/72 O2 Sat by Pulse 95 Oximetry - Reevaluation(s) Reevaluation #1: 10/19/23 16:35 Medical records reviewed Reevaluation #2: 10/19/23 16:36 Patient symptoms unchanged Reevaluation #3: 10/19/23 19:19 Patient informed of results and questions answered Reevaluation #4: Was pt. sent in by a medical professional or institution (, PA, [employer], urgent care, hospital, or penitentiary...) When possible be specific @ -no Did you speak to anyone other than the patient for history (EMS, parent, family, police, friend...)? What history was obtained from this source @ -no Did you review nursing and triage notes (agree or disagree)? Why? @ -agree Are old charts reviewed (outside hosp., previous admission, EMS record, old EKG, old radiological studies, urgent care reports/EKG's, penitentiary records)? Report findings @ -yes Differential Diagnosis (chest pain, altered mental status, abdominal pain women, abdominal pain men, vaginal bleeding, weakness, fever, dyspnea, syncope, headache, dizziness, GI bleed, back pain, seizure, CVA, palpatations, mental health, musculoskeletal)? @ -prior EKG interpreted by me (3pts min.). @ -no X-rays interpreted by me (1pt min.). @ -no CT interpreted by me (1pt min.). @ -Yes negative for acute disease U/S interpreted by me (1pt. min.). @ -no What testing was considered but not performed or refused? (CT, X-rays, U/S, labs)? Why? @ -none What meds were considered but not given or refused? Why? @ -none Did you discuss the management of the patient with other professionals (professionals i.e. , PA, [employer] F[employer], lab, RT, psych nurse, social service technician, boilers and pressure vessels inspector, teacher, airfield engineer officer, senior case manager)? Give summary @ -no Was smoking cessation discussed for >3mins.? @ -no Was critical care preformed (if so, how long)? @ -no Were there social determinants of health that impacted care today? How? (Homelessness, low income, unemployed, alcoholism, drug addiction, transportation, low edu. Level, literacy, decrease access to med. care, assisted, rehab)? @ -none Was there de-escalation of care discussed even if they declined (Discuss DNR or withdrawal of care, Hospice)? DNR status @ -no What co-morbidities impacted this encounter? (DM, HTN, Smoking, COPD, CAD, Cancer, CVA, ARF, Chemo, Hep., AIDS, mental health diagnosis, sleep apnea, morbid obesity)? @ -none Was patient admitted / discharged? Hospital course, mention meds given and route, prescriptions, significant lab abnormalities, going to OR and other pertinent info. @ - 52 female to the ER for evaluation of severe abdominal pain with mild pancreatitis here in the ER. P patient will need to be admitted for intractable nausea vomiting if she is actively vomiting prior to discharge, patient will be admitted for further symptom management Admitted Undiagnosed new problem with uncertain prognosis? @ -no Drug Therapy requiring intensive monitoring for toxicity (Heparin, Nitro, Insulin, Cardizem)? @ -no Were any procedures done? @ -no Diagnosis/symptom? @ -Pancreatitis abdominal pain nausea vomiting Acute, or Chronic, or Acute on Chronic? @ -Acute Uncomplicated (without systemic symptoms) or Complicated (systemic symptoms)? @ -Complicated Side effects of treatment? @ -no Exacerbation, Progression, or Severe Exacerbation? @ -exacerbation Poses a threat to life or bodily function? How? (Chest pain, [place], [place], pneumonia, PE, COPD, DKA, ARF, appy, cholecystitis, CVA, Diverticulitis, Homicidal, Suicidal, threat to staff... and all critical care pts) @ -yes with significant abdominal pancreatitis Reevaluation #5: Differential Abdominal Pain Women: Appendicitis, Cholecystitis, diverticulosis, ischemic bowel, pancreatitis, he patitis, UTI, gastroenteritis, AAA, incarcerated hernia, bowel obstruction, constipation, inflammatory bowel, hepatitis, peptic ulcer disease, splenic infarction, perforated viscus, vulvitis, ovarian torsion, PID, kidney stone, placenta abruption, this is not meant to be an all-inclusive list - Consultations Consultation #1: Spoke with [facility] who agrees to admit this patient Medical Decision Making - Medical Decision Making 52 female to the ER for evaluation of severe abdominal pain with mild pancreati tis here in the ER. P patient will need to be admitted for intractable nausea vomiting if she is actively vomiting prior to discharge, patient will be admitted for further symptom management - Lab Data Result diagrams: 10/20/23 06:56 10/20/23 06:56 Lab Results 10/19/23 10/19/23 10/19/23 Range/Units 15:45 15:45 15:45 WBC 9.2 (3.8-10.6) k/uL RBC 4.63 (3.80-5.40) m/uL Hgb 14.0 (11.4-16.0) gm/dL Hct 40.0 (34.0-46.0) % MCV 86.4 (80.0-100.0) fL MCH 30.1 (25.0-35.0) pg MCHC 34.9 (31.0-37.0) g/dL RDW 12.9 (11.5-15.5) % Plt Count 147 L (150-450) k/uL MPV 8.4 Neutrophils % 89 % Lymphocytes % 6 % Monocytes % 2 % Eosinophils % 3 % Basophils % 0 % Neutrophils # 8.2 H (1.3-7.7) k/uL Lymphocytes # 0.5 L (1.0-4.8) k/uL Monocytes # 0.2 (0-1.0) k/uL Eosinophils # 0.3 (0-0.7) k/uL Basophils # 0.0 (0-0.2) k/uL Sodium 138 (137-145) mmol/L Potassium 3.7 (3.5-5.1) mmol/L Chloride 108 H (98-107) mmol/L Carbon Dioxide 23 (22-30) mmol/L Anion Gap 7 mmol/L BUN 21 H (7-17) mg/dL Creatinine 0.63 (0.52-1.04) mg/dL Est GFR (CKD-EPI)AfAm >90 (>60 ml/min/1.73 sqM) Est GFR (CKD-EPI)NonAf >90 (>60 ml/min/1.73 sqM) Glucose 140 H (74-99) mg/dL Calcium 8.8 (8.4-10.2) mg/dL Phosphorus 2.3 L (2.5-4.5) mg/dL Magnesium 1.8 (1.6-2.3) mg/dL Total Bilirubin 0.9 (0.2-1.3) mg/dL AST 106 H (14-36) U/L ALT 38 H (4-34) U/L Alkaline Phosphatase 97 (38-126) U/L Total Protein 7.1 (6.3-8.2) g/dL Albumin 4.2 (3.5-5.0) g/dL Amylase 110 (30-110) U/L Lipase 356 H (23-300) U/L Urine Color Yellow Urine Appearance Cloudy H (Clear) Urine pH 5.5 (5.0-8.0) Ur Specific [place] 1.044 H (1.001-1.035) Urine Protein 1+ H (Negative) Urine Glucose (UA) Negative (Negative) Urine Ketones Trace H (Negative) Urine Blood Negative (Negative) Urine Nitrite Negative (Negative) Urine Bilirubin Negative (Negative) Urine Urobilinogen 3.0 (<2.0) mg/dL Ur Leukocyte Esterase Large H (Negative) Urine WBC 7 H (0-5) /hpf Ur Squamous Epith Cells 13 H (0-4) /hpf Calcium Oxalate Crystal Rare H (None) /hpf Amorphous Sediment Few H (None) /hpf Urine Bacteria Rare H (None) /hpf Urine Mucus Many H (None) /hpf 10/20/23 10/20/23 Range/Units 06:56 06:56 WBC 6.5 (3.8-10.6) k/uL RBC 4.46 (3.80-5.40) m/uL Hgb 12.9 (11.4-16.0) gm/dL Hct 39.4 (34.0-46.0) % MCV 88.3 (80.0-100.0) fL MCH 28.9 (25.0-35.0) pg MCHC 32.8 (31.0-37.0) g/dL RDW 12.9 (11.5-15.5) % Plt Count 168 (150-450) k/uL MPV 8.5 Neutrophils % 83 % Lymphocytes % 13 % Monocytes % 3 % Eosinophils % 0 % Basophils % 0 % Neutrophils # 5.4 (1.3-7.7) k/uL Lymphocytes # 0.9 L (1.0-4.8) k/uL Monocytes # 0.2 (0-1.0) k/uL Eosinophils # 0.0 (0-0.7) k/uL Basophils # 0.0 (0-0.2) k/uL Sodium 140 (137-145) mmol/L Potassium 4.0 (3.5-5.1) mmol/L Chloride 111 H (98-107) mmol/L Carbon Dioxide 24 (22-30) mmol/L Anion Gap 5 mmol/L BUN 12 (7-17) mg/dL Creatinine 0.57 (0.52-1.04) mg/dL Est GFR (CKD-EPI)AfAm >90 (>60 ml/min/1.73 sqM) Est GFR (CKD-EPI)NonAf >90 (>60 ml/min/1.73 sqM) Glucose 115 H (74-99) mg/dL Calcium 8.7 (8.4-10.2) mg/dL Phosphorus (2.5-4.5) mg/dL Magnesium (1.6-2.3) mg/dL Total Bilirubin 0.5 (0.2-1.3) mg/dL AST 455 H (14-36) U/L ALT 279 H (4-34) U/L Alkaline Phosphatase 147 H (38-126) U/L Total Protein 6.3 (6.3-8.2) g/dL Albumin 3.6 (3.5-5.0) g/dL Amylase (30-110) U/L Lipase 80 (23-300) U/L Urine Color Urine Appearance (Clear) Urine pH (5.0-8.0) Ur Specific [place] (1.001-1.035) Urine Protein (Negative) Urine Glucose (UA) (Negative) Urine Ketones (Negative) Urine Blood (Negative) Urine Nitrite (Negative) Urine Bilirubin (Negative) Urine Urobilinogen (<2.0) mg/dL Ur Leukocyte Esterase (Negative) Urine WBC (0-5) /hpf Ur Squamous Epith Cells (0-4) /hpf Calcium Oxalate Crystal (None) /hpf Amorphous Sediment (None) /hpf Urine Bacteria (None) /hpf Urine Mucus (None) /hpf - Radiology Data Radiology results: report reviewed (CT of the chest abdomen pelvis is negative for significant acute disease), image reviewed Disposition Clinical Impression: Abdominal pain, Pancreatitis, Intractable nausea and vomiting Disposition: ADMITTED IP TO THIS [facility] Condition: Good Is patient prescribed a controlled substance at d/c from ED?: No Time of Disposition: 19:20
[2023-10-19 16:07] LABS: Basophils % (A) 0 %; Eosinophils # (A) 0.3 k/uL (0-0.7); Eosinophils % (A) 3 %; Lymphocytes # (A) 0.5 k/uL (1.0-4.8); Lymphocytes % (A) 6 %; MCH 30.1 pg (25.0-35.0); MCHC 34.9 g/dL (31.0-37.0); MCV 86.4 fL (80.0-100.0); Mean Platelet Volume 8.4; Monocytes # (A) 0.2 k/uL (0-1.0); Monocytes % (A) 2 %; Neutrophils # (A) 8.2 k/uL (1.3-7.7); Neutrophils % (A) 89 %; Platelet Count 147 k/uL (150-450); RBC 4.63 m/uL (3.80-5.40); RDW 12.9 % (11.5-15.5); WBC 9.2 k/uL (3.8-10.6)
[2023-10-19] MEDS: KETOROLAC 15 MG/ML 1 ML VIAL IVP STA (16:08)
[2023-10-19] MEDS: ONDANSETRON 4 MG/2 ML VIAL IVP STA ×2 (16:08→19:59)
[2023-10-19] MEDS: SODIUM CHLORIDE 0.9% 1,000 ML IV STA ×2 (16:09→18:16)
[2023-10-19] MEDS: HYDROmorphone 1 MG/ML 1 ML SYRINGE IVP STA ×2 (16:09→18:16)
[2023-10-19 16:18] LABS: ALT 38 U/L (4-34); AST 106 U/L (14-36); African American GFR (CKD) >90 (>60 ml/min/1.73 sqM); Albumin 4.2 g/dL (3.5-5.0); Alkaline Phosphatase 97 U/L (38-126); Amylase 110 U/L (30-110); Anion Gap 7 mmol/L; Blood Urea Nitrogen 21 mg/dL (7-17); Calcium 8.8 mg/dL (8.4-10.2); Carbon Dioxide 23 mmol/L (22-30); Chloride 108 mmol/L (98-107); Glucose 140 mg/dL (74-99); Lipase 356 U/L (23-300); Magnesium 1.8 mg/dL (1.6-2.3); Non-African American GFR(CKD) >90 (>60 ml/min/1.73 sqM); Phosphorus 2.3 mg/dL (2.5-4.5); Potassium 3.7 mmol/L (3.5-5.1); Sodium 138 mmol/L (137-145); Total Bilirubin 0.9 mg/dL (0.2-1.3); Total Protein 7.1 g/dL (6.3-8.2)
[2023-10-19 16:19] LABS: Amorphous Sediment,Urine Few /hpf; Appearance,Urine Cloudy (Clear); Bacteria,Urine Rare /hpf; Bilirubin,Urine Negative (Negative); Blood,Urine Negative (Negative); Calcium Oxalate Crystals,Urine Rare /hpf; Color,Urine Yellow; Glucose,Urine (UA) Negative (Negative); Ketones,Urine Trace (Negative); Leukocyte Esterase,Urine Large (Negative); Mucus,Urine Many /hpf; Nitrite,Urine Negative (Negative); PH, Urine 5.5 (5.0-8.0); Protein,Urine 1+ (Negative); Specific Gravity,Urine 1.044 (1.001-1.035); Squamous Epithelial Cell,Urine 13 /hpf (0-4); WBC,Urine 7 /hpf (0-5)
[2023-10-19] MEDS: PROCHLORPERAZINE INJ 10 MG/2 ML VIAL IVP STA (18:16)
--- NOTE | 2023-10-19 18:19 | CT ---
EXAMINATION TYPE: CT angio chest DATE OF EXAM: 10/19/2023 COMPARISON: None HISTORY: 52-year-old female with pain R/O PE. TECHNIQUE: Contiguous axial scanning of the chest after the administration of 100 ml mL of Isovue 370 . Coronal/sagittal MIP reconstructions performed. CT DLP: Combined DLP of 1465.9mGycm. Automatic exposure control utilized for a dose reduction. FINDINGS: Heart upper limits of normal in size without pericardial effusion. No flattening of the interventricu lar septum reflux of contrast into hepatic veins. Aorta normal caliber with conventional branching anatomy. No thoracic lymphadenopathy by CT size criteria. Satisfactory opacification of the pulmonary arterial system. No evidence for pulmonary embolus. Prominent dependent atelectasis in the lower lung. No consolidation or pleural effusion. There may be a tiny hiatal hernia with postsurgical change of sleeve gastrectomy. Bones: Mild degenerative disc disease lower thoracic spine. IMPRESSION: 1. No evidence for pulmonary embolus. 2. Mild dependent atelectasis in the lower lungs without acute pulmonary process. 3. Tiny hiatal hernia. Patient status post sleeve gastrectomy.
--- NOTE | 2023-10-19 18:28 | CT ---
EXAMINATION TYPE: CT abdomen pelvis w con DATE OF EXAM: 10/19/2023 COMPARISON: NONE HISTORY: 52-year-old female Abdominal pain and cramping. Hx of gastric sleeve. TECHNIQUE: Contiguous axial scanning of the abdomen and pelvis following administration of 100 ml Iso jay 370 IV contrast. Delayed images through the kidneys and coronal/sagittal reconstructions perform ed. CT DLP: Combined DLP of 1465.9 mGycm Automated exposure control for dose reduction was used. FINDINGS: Chest reported separately. Tiny hiatal hernia. Status post sleeve gastrectomy. Incidentally, there is a 2.0 cm area of portosystemic shunting in the inferior right liver lobe. Othe rwise, no focal liver lesion. Portal venous system is patent. Bile duct mildly dilated at 7 mm, acceptable given postcholecystectomy status. Adrenal glands, kidneys, spleen, and pancreas within normal limits. No dilated small bowel, free fluid, or free air. No mesenteric or retroperitoneal lymphadenopathy. Some prominent fluid. Small bowel loops in the lower abdomen and in the pelvis and some liquid stool in the right side of the colon. Normal appendix. No pericolonic inflammatory change. Bladder partially distended. Uterus surgically absent. Both ovaries are visualized. There is a droppe d surgical clip in the cul-de-sac. No abnormal fluid collection in the pelvis or pelvic lymphadenopat hy. Bones: Mild facet arthropathy lower lumbar spine. Mild degenerative disc disease lower thoracic spine . IMPRESSION: 1. STATUS POST SLEEVE GASTRECTOMY WITH A TINY HIATAL HERNIA. 2. SOME PROMINENT FLUID-FILLED SMALL BOWEL LOOPS IN LOWER ABDOMEN AND PELVIS AND SOME LIQUID STOOL IN THE RIGHT SIDE OF THE COLON. CONSIDER A MILD ENTERITIS.
[2023-10-19] MEDS: ACET/COD 300 MG/30 MG STARTER PACK 6 TAB BTL PO STA (19:58)
[2023-10-19] MEDS: ONDANSETRON 4 MG ODT STARTER PACK 2 TAB BTL PO STA (19:58)
[2023-10-19] MEDS: MORPHINE SULFATE 4 MG/ML SYRINGE IVP STA (19:59)
[2023-10-19] MEDS ORDERED: ACETAMINOPHEN TAB 325 MG TAB PO PRN (20:24)
[2023-10-19] MEDS ORDERED: NALOXONE 0.4 MG/ML 1 ML VIAL IV PRN ×2 (20:24→21:14)
[2023-10-19] MEDS ORDERED: oxyCODONE-APAP 5-325MG 1 EACH TAB PO PRN (20:24)
[2023-10-19] MEDS: SODIUM CHLORIDE 0.9% 1,000 ML IV SCH ×2 (21:09→21:40)
[2023-10-19] MEDS: HYDROmorphone 1 MG/ML 1 ML SYRINGE IVP PRN (22:26)
[2023-10-20] MEDS: PROCHLORPERAZINE 5 MG TAB PO PRN (03:02)
[2023-10-20] MEDS: ONDANSETRON 4 MG/2 ML VIAL IVP PRN (06:34)
[2023-10-20 07:24] LABS: Basophils % (A) 0 %; Eosinophils % (A) 0 %; HCT 39.4 % (34.0-46.0); HGB 12.9 gm/dL (11.4-16.0); Lymphocytes # (A) 0.9 k/uL (1.0-4.8); Lymphocytes % (A) 13 %; MCH 28.9 pg (25.0-35.0); MCHC 32.8 g/dL (31.0-37.0); MCV 88.3 fL (80.0-100.0); Mean Platelet Volume 8.5; Monocytes # (A) 0.2 k/uL (0-1.0); Monocytes % (A) 3 %; Neutrophils # (A) 5.4 k/uL (1.3-7.7); Neutrophils % (A) 83 %; Platelet Count 168 k/uL (150-450); RBC 4.46 m/uL (3.80-5.40); RDW 12.9 % (11.5-15.5); WBC 6.5 k/uL (3.8-10.6)
[2023-10-20 07:52] LABS: ALT 279 U/L (4-34); AST 455 U/L (14-36); African American GFR (CKD) >90 (>60 ml/min/1.73 sqM); Albumin 3.6 g/dL (3.5-5.0); Alkaline Phosphatase 147 U/L (38-126); Anion Gap 5 mmol/L; Blood Urea Nitrogen 12 mg/dL (7-17); Calcium 8.7 mg/dL (8.4-10.2); Carbon Dioxide 24 mmol/L (22-30); Chloride 111 mmol/L (98-107); Glucose 115 mg/dL (74-99); Lipase 80 U/L (23-300); Non-African American GFR(CKD) >90 (>60 ml/min/1.73 sqM); Sodium 140 mmol/L (137-145); Total Bilirubin 0.5 mg/dL (0.2-1.3); Total Protein 6.3 g/dL (6.3-8.2)
[2023-10-20 07:59] VITALS: BP 122/72; PULSE 94; RESP 16; TEMP 98.2
--- NOTE | 2023-10-20 09:53 | P.HPIM ---
History of Present Illness This is a pleasant 52 years old female with past medical history of hypertension and hypothyroidism. She works in a daycare. Patient presents because of abdominal pain of 1 day duration She woke up yesterday with some nausea which gradually got worse but then she started having abdominal cramps severe enough to bother her and make her come to the hospital. These problems were coming every 5 to 10 minutes very severe that she could not not take of breath or walk because of them felt like dull and sharp together mainly in the epigastric area nonradiating described by standing and standing CBAVD associated with nausea vomiting, she vomited 4 times with no blood. And patient had no bowel movement. She is passing little gas only. On presentation her abdominal pain responded to pain medication and currently is minimal. Vomiting responded to antiemetic mainly Compazine and to a lesser extent Zofran She denies any urinary symptoms. No dysuria urgency. Yesterday had headache but not today. No dizziness weakness or numbness. No chest pain dyspnea or coughing. She denies smoking alcohol or illicit drugs. She is hemodynamically stable afebrile. Blood pressure still on the low side but is improving Labs reviewed CBC and BMP are unremarkable. Lipase was mildly elevated yesterday came back to reference range today CTA of the chest negative for pulmonary embolism on CT of the abdomen and pelvis: Prominent fluid-filled small bowel loops in the lower abdomen and pelvis with some liquid stool in the right side of the colon Review of Systems review of systems CONSTITUTIONAL: No fever, no malaise, no fatigue. HEENT: No recent visual problems or hearing problems. Denied any sore throat. CARDIOVASCULAR: No orthopnea, PND, no palpitations, no syncope. PULMONARY: No shortness of breath, no cough, no hemoptysis. -GASTROINTESTINAL: As above NEUROLOGICAL: No headaches, no weakness, no numbness. HEMATOLOGICAL: Denies any bleeding or petechiae. GENITOURINARY: Denies any burning micturition, frequency, or urgency. MUSCULOSKELETAL/RHEUMATOLOGICAL: Denies any joint pain, swelling, or any muscle pain. ENDOCRINE: Denies any polyuria or polydipsia. Past Medical History Past Medical History: Hyperlipidemia, Thyroid Disorder Additional Past Medical History / Comment(s): Patient reports she is not diabetic since gastric sleeve surgery in 2019 History of Any Multi-Drug Resistant Organisms: None Reported Past Surgical History: Bariatric Surgery, Cholecystectomy, Hysterectomy, Tubal Ligation Additional Past Surgical History / Comment(s): Gastric Sleeve 07/13/19 Past Anesthesia/Blood Transfusion Reactions: No Reported Reaction Past Psychological History: Anxiety Smoking Status: Never smoker Past Alcohol Use History: None Reported Past Drug Use History: None Reported Additional Drug Use History / Comment(s): Daily marijuana user. - Past Family History Mother Additional Family Medical History / Comment(s): hypoglycemia Father Family Medical History: Congestive Heart Failure (CHF), Diabetes Mellitus, Renal Disease, Thyroid Disorder Medications and Allergies Home Medications Medication Instructions Recorded Confirmed Type Citalopram Hydrobromide 40 mg PO DAILY 03/12/19 10/19/23 History [Citalopram HBr] Omeprazole 40 mg PO DAILY #30 cap 07/14/19 10/19/23 Rx HYDROcodone/APAP 5-325MG [[place] 1 tab PO HS PRN 02/14/22 10/19/23 History 5-325] Cholecalciferol (Vitamin D3) 1,250 mcg PO QMONTHLY 10/19/23 10/19/23 History [Vitamin D3 (1250 Mcg = 50,000 Iu)] Fexofenadine HCl [Zhane Allergy] 180 mg PO DAILY 10/19/23 10/19/23 History Gabapentin [Neurontin] 300 mg PO HS 10/19/23 10/19/23 History Levothyroxine Sodium [Synthroid] 112 mcg PO DAILY 10/19/23 10/19/23 History Ondansetron Odt [Zofran ODT] 4 mg PO Q8HR PRN #20 tab 10/19/23 Rx Phentermine HCl [Adipex-P] 37.5 mg PO DIRECTED 10/19/23 10/19/23 History Allergies Allergy/AdvReac Type Severity Reaction Status Date / Time No Known Allergies Allergy Verified 10/19/23 20:33 Physical Exam Vitals: Vital Signs Temp Pulse Pulse Resp BP BP Pulse Ox 10/20/23 07:05 98.2 F 94 16 122/72 95 10/20/23 01:33 98.6 F 95 17 100/61 96 10/19/23 22:25 97.7 F 85 16 99/61 98 10/19/23 21:00 80 18 117/72 95 10/19/23 20:17 98.4 F 93 18 124/78 97 10/19/23 20:00 85 18 124/78 98 10/19/23 19:00 84 18 114/68 10/19/23 18:00 84 18 112/72 98 10/19/23 17:00 82 18 115/65 98 10/19/23 16:00 84 18 127/64 100 10/19/23 15:21 100 10/19/23 15:18 97.6 F 82 18 98 10/19/23 14:58 98.3 F 82 18 172/82 100 Intake and Output 10/19/23 10/20/23 10/20/23 21:59 06:59 14:59 Other: Voiding Method Toilet # Voids Weight GENERAL: The patient is alert and oriented x3, not in any acute distress. Well developed, well nourished. HEENT: Pupils are round and equally reacting to light. EOMI. No scleral icterus. No conjunctival pallor. Normocephalic, atraumatic. No pharyngeal erythema. No thyromegaly. CARDIOVASCULAR: S1 and S2 present. No murmurs, rubs, or gallops. PULMONARY: Chest is clear to auscultation, no wheezing , no crackles. -ABDOMEN: Soft, Epigastric tenderness with no guarding or rebound tenderness vertex, nondistended, normoactive bowel sounds. No palpable organomegaly. MUSCULOSKELETAL: No joint swelling or deformity. EXTREMITIES: No cyanosis, clubbing, or pedal edema. NEUROLOGICAL: Gross neurological examination did not reveal any focal deficits. SKIN: No rashes. no petechiae. Results CBC & Chem 7: 10/20/23 06:56 10/20/23 06:56 Labs: Abnormal Lab Results - Last 24 Hours (Table) 10/19/23 10/19/23 10/19/23 Range/Units 15:45 15:45 15:45 Plt Count 147 L (150-450) k/uL Neutrophils # 8.2 H (1.3-7.7) k/uL Lymphocytes # 0.5 L (1.0-4.8) k/uL Chloride 108 H (98-107) mmol/L BUN 21 H (7-17) mg/dL Glucose 140 H (74-99) mg/dL Phosphorus 2.3 L (2.5-4.5) mg/dL AST 106 H (14-36) U/L ALT 38 H (4-34) U/L Alkaline Phosphatase (38-126) U/L Lipase 356 H (23-300) U/L Urine Appearance Cloudy H (Clear) Ur Specific [place] 1.044 H (1.001-1.035) Urine Protein 1+ H (Negative) Urine Ketones Trace H (Negative) Ur Leukocyte Esterase Large H (Negative) Urine WBC 7 H (0-5) /hpf Ur Squamous Epith Cells 13 H (0-4) /hpf Calcium Oxalate Crystal Rare H (None) /hpf Amorphous Sediment Few H (None) /hpf Urine Bacteria Rare H (None) /hpf Urine Mucus Many H (None) /hpf 10/20/23 10/20/23 Range/Units 06:56 06:56 Plt Count (150-450) k/uL Neutrophils # (1.3-7.7) k/uL Lymphocytes # 0.9 L (1.0-4.8) k/uL Chloride 111 H (98-107) mmol/L BUN (7-17) mg/dL Glucose 115 H (74-99) mg/dL Phosphorus (2.5-4.5) mg/dL AST 455 H (14-36) U/L ALT 279 H (4-34) U/L Alkaline Phosphatase 147 H (38-126) U/L Lipase (23-300) U/L Urine Appearance (Clear) Ur Specific [place] (1.001-1.035) Urine Protein (Negative) Urine Ketones (Negative) Ur Leukocyte Esterase (Negative) Urine WBC (0-5) /hpf Ur Squamous Epith Cells (0-4) /hpf Calcium Oxalate Crystal (None) /hpf Amorphous Sediment (None) /hpf Urine Bacteria (None) /hpf Urine Mucus (None) /hpf Thrombosis Risk Factor Assmnt - Choose All That Apply Any of the Below Risk Factors Present?: Yes Each Factor Represents 1 point: Age 41-60 years, Obesity (BMI >25) Other Risk Factors: No Thrombosis Risk Factor Assessment Total Risk Factor Score: 2 Thrombosis Risk Factor Assessment Level: Low Risk Assessment and Plan Assessment: Acute gastroenteritis Worsening transaminitis Dehydration secondary to above Hypertension, currently blood pressure on the low normal side Hypothyroidism Obesity with BMI of 31 Plan: Continue with normal saline currently at 150 mL/h Start Flagyl and ceftriaxone Check stool studies. Sent for C. difficile although the patient does not have significant diarrhea today Check liver ultrasound Surgery team consult There is no GI coverage in this facility today, with this worsening liver enzymes and other GI problems will recommend GI evaluation, therefore I suggested to the patient to transfer her to higher level of care and she agrees to go to [facility]. I contacted the transfer center pending reviewing the case and hopefully approval Labs and medication were reviewed.. Continue same treatment. Continue with symptomatic treatment. Resume home medication. Monitor labs and vitals. DVT and GI prophylaxis. Further recommendations as per clinical course of the patient DVT prophylaxis: Subcutaneous heparin GI Prophylaxis: Protonix Prognosis is guarded
[2023-10-20] MEDS: PANTOPRAZOLE 40 MG/10 ML VIAL IVP SCH (10:13)
[2023-10-20] MEDS: metroNIDAZOLE-NS PMX 500 MG in SALINE 1 100ML.BAG IVPB SCH (10:59)
--- NOTE | 2023-10-20 11:53 | P.GSCN ---
History of Present Illness Consult date: 10/20/23 Reason for Consult: Abdominal pain History of present illness: 52-year-old female came to the hospital because of abdominal pain that was in th e upper mid abdomen radiating to the back. She felt nauseated. Pain is somewhat better today. Liver enzymes from yesterday to today increase significantly. Apparently plans are already underway for transfer to [facility] for GI services. History of previous cholecystectomy at time of her pr evious sleeve gastrectomy. CBD on CAT scan 7 mm. Ultrasound liver pending. Review of Systems The patient denies any acute changes in vision or hearing, no dysphagia or od ynophagia, no chest pain or shortness of breath, no dysuria or hematuria, no headache, no runny nose, no rectal bleeding or melena, no unexplained weight loss Past Medical History Past Medical History: Hyperlipidemia, Thyroid Disorder Additional Past Medical History / Comment(s): Patient reports she is not diabetic since gastric sleeve surgery in 2019 History of Any Multi-Drug Resistant Organisms: None Reported Past Surgical History: Bariatric Surgery, Cholecystectomy, Hysterectomy, Tubal Ligation Additional Past Surgical History / Comment(s): Gastric Sleeve 07/13/19 Past Anesthesia/Blood Transfusion Reactions: No Reported Reaction Past Psychological History: Anxiety Smoking Status: Never smoker Past Alcohol Use History: None Reported Past Drug Use History: None Reported Additional Drug Use History / Comment(s): Daily marijuana user. - Past Family History Mother Additional Family Medical History / Comment(s): hypoglycemia Father Family Medical History: Congestive Heart Failure (CHF), Diabetes Mellitus, Renal Disease, Thyroid Disorder Medications and Allergies Home Medications Medication Instructions Recorded Confirmed Type Citalopram Hydrobromide 40 mg PO DAILY 03/12/19 10/19/23 History [Citalopram HBr] Omeprazole 40 mg PO DAILY #30 cap 07/14/19 10/19/23 Rx HYDROcodone/APAP 5-325MG [[place] 1 tab PO HS PRN 02/14/22 10/19/23 History 5-325] Cholecalciferol (Vitamin D3) 1,250 mcg PO QMONTHLY 10/19/23 10/19/23 History [Vitamin D3 (1250 Mcg = 50,000 Iu)] Fexofenadine HCl [Zhane Allergy] 180 mg PO DAILY 10/19/23 10/19/23 History Gabapentin [Neurontin] 300 mg PO HS 10/19/23 10/19/23 History Levothyroxine Sodium [Synthroid] 112 mcg PO DAILY 10/19/23 10/19/23 History Ondansetron Odt [Zofran ODT] 4 mg PO Q8HR PRN #20 tab 10/19/23 Rx Phentermine HCl [Adipex-P] 37.5 mg PO DIRECTED 10/19/23 10/19/23 History Allergies Allergy/AdvReac Type Severity Reaction Status Date / Time No Known Allergies Allergy Verified 10/19/23 20:33 Surgical - Exam Vital Signs Temp Pulse Resp BP Pulse Ox 98.3 F 82 18 172/82 100 10/19/23 14:58 10/19/23 14:58 10/19/23 14:58 10/19/23 14:58 10/19/23 14:58 Physical exam: General: Well-developed, well-nourished HEENT: Normocephalic, sclerae nonicteric Abdomen: Minimal epigastric tenderness nondistended Extremities: No edema Neuro: Alert and oriented Results - Labs 10/20/23 06:56 10/20/23 06:56 Abnormal Lab Results - Last 24 Hours (Table) 10/19/23 10/19/23 10/19/23 Range/Units 15:45 15:45 15:45 Plt Count 147 L (150-450) k/uL Neutrophils # 8.2 H (1.3-7.7) k/uL Lymphocytes # 0.5 L (1.0-4.8) k/uL Chloride 108 H (98-107) mmol/L BUN 21 H (7-17) mg/dL Glucose 140 H (74-99) mg/dL Phosphorus 2.3 L (2.5-4.5) mg/dL AST 106 H (14-36) U/L ALT 38 H (4-34) U/L Alkaline Phosphatase (38-126) U/L Lipase 356 H (23-300) U/L Urine Appearance Cloudy H (Clear) Ur Specific [place] 1.044 H (1.001-1.035) Urine Protein 1+ H (Negative) Urine Ketones Trace H (Negative) Ur Leukocyte Esterase Large H (Negative) Urine WBC 7 H (0-5) /hpf Ur Squamous Epith Cells 13 H (0-4) /hpf Calcium Oxalate Crystal Rare H (None) /hpf Amorphous Sediment Few H (None) /hpf Urine Bacteria Rare H (None) /hpf Urine Mucus Many H (None) /hpf 10/20/23 10/20/23 Range/Units 06:56 06:56 Plt Count (150-450) k/uL Neutrophils # (1.3-7.7) k/uL Lymphocytes # 0.9 L (1.0-4.8) k/uL Chloride 111 H (98-107) mmol/L BUN (7-17) mg/dL Glucose 115 H (74-99) mg/dL Phosphorus (2.5-4.5) mg/dL AST 455 H (14-36) U/L ALT 279 H (4-34) U/L Alkaline Phosphatase 147 H (38-126) U/L Lipase (23-300) U/L Urine Appearance (Clear) Ur Specific [place] (1.001-1.035) Urine Protein (Negative) Urine Ketones (Negative) Ur Leukocyte Esterase (Negative) Urine WBC (0-5) /hpf Ur Squamous Epith Cells (0-4) /hpf Calcium Oxalate Crystal (None) /hpf Amorphous Sediment (None) /hpf Urine Bacteria (None) /hpf Urine Mucus (None) /hpf Diabetes panel 10/19/23 10/20/23 Range/Units 15:45 06:56 Sodium 138 140 (137-145) mmol/L Potassium 3.7 4.0 (3.5-5.1) mmol/L Chloride 108 H 111 H (98-107) mmol/L Carbon Dioxide 23 24 (22-30) mmol/L BUN 21 H 12 (7-17) mg/dL Creatinine 0.63 0.57 (0.52-1.04) mg/dL Glucose 140 H 115 H (74-99) mg/dL Calcium 8.8 8.7 (8.4-10.2) mg/dL AST 106 H 455 H (14-36) U/L ALT 38 H 279 H (4-34) U/L Alkaline Phosphatase 97 147 H (38-126) U/L Total Protein 7.1 6.3 (6.3-8.2) g/dL Albumin 4.2 3.6 (3.5-5.0) g/dL Calcium panel 10/19/23 10/20/23 Range/Units 15:45 06:56 Calcium 8.8 8.7 (8.4-10.2) mg/dL Phosphorus 2.3 L (2.5-4.5) mg/dL Albumin 4.2 3.6 (3.5-5.0) g/dL Pituitary panel 10/19/23 10/20/23 Range/Units 15:45 06:56 Sodium 138 140 (137-145) mmol/L Potassium 3.7 4.0 (3.5-5.1) mmol/L Chloride 108 H 111 H (98-107) mmol/L Carbon Dioxide 23 24 (22-30) mmol/L BUN 21 H 12 (7-17) mg/dL Creatinine 0.63 0.57 (0.52-1.04) mg/dL Glucose 140 H 115 H (74-99) mg/dL Calcium 8.8 8.7 (8.4-10.2) mg/dL Adrenal panel 10/19/23 10/20/23 Range/Units 15:45 06:56 Sodium 138 140 (137-145) mmol/L Potassium 3.7 4.0 (3.5-5.1) mmol/L Chloride 108 H 111 H (98-107) mmol/L Carbon Dioxide 23 24 (22-30) mmol/L BUN 21 H 12 (7-17) mg/dL Creatinine 0.63 0.57 (0.52-1.04) mg/dL Glucose 140 H 115 H (74-99) mg/dL Calcium 8.8 8.7 (8.4-10.2) mg/dL Total Bilirubin 0.9 0.5 (0.2-1.3) mg/dL AST 106 H 455 H (14-36) U/L ALT 38 H 279 H (4-34) U/L Alkaline Phosphatase 97 147 H (38-126) U/L Total Protein 7.1 6.3 (6.3-8.2) g/dL Albumin 4.2 3.6 (3.5-5.0) g/dL Assessment and Plan (1) Abdominal pain Narrative/Plan: 52-year-old female with elevated liver enzymes and upper mid abdominal pain. Suspect primary common bile duct stone formation. Patient may have passed a stone already. Await ultrasound. Await transfer which has already been initiated. Current Visit: Yes Status: Acute Code(s): R10.9 - UNSPECIFIED ABDOMINAL PAIN SNOMED Code(s): 85217447
--- NOTE | 2023-10-20 12:50 | US ---
EXAMINATION TYPE: US liver DATE OF EXAM: 10/20/2023 COMPARISON: CT 10/19/2023 CLINICAL INDICATION: Female, 52 years old with history of high enz; High Enz. Hx cholecystectomy, gas tric sleeve surgery. TECHNIQUE: Multiple sonographic images of the right upper quadrant are obtained. FINDINGS: EXAM MEASUREMENTS: Liver Length: 15.2 cm Gallbladder: surgically absent CBD: 0.95 cm, post-cholecystectomy Right Kidney: 10.5 x 5.2 x 4.3 cm BOWLING BALL GRADER NOTES: Limited due to gas. Pancreas: Limited visibility of tail. Liver: Prominent vascularity seen within the right lobe of the liver. This is in keeping with an are a of intrahepatic portosystemic shunting seen on CT yesterday. Gallbladder: Surgically absent Evidence for sonographic Cade's sign: No CBD: 0.95 cm Right Kidney: No hydronephrosis or masses seen IMPRESSION: 1. Dilated bile duct at 9.5 mm may be acceptable postcholecystectomy status. However, it was measured on CT at 7 mm yesterday. Correlate with alkaline phosphatase and bilirubin levels to exclude the pos sibility of biliary obstruction. 2. Focal 2.0 cm area of intrahepatic portosystemic shunting in the right lower lobe as seen on CT.
[2023-10-20] MEDS ORDERED: HEPARIN SODIUM,PORCINE 5,000 UNIT/ML 1 ML VIAL SQ SCH (16:00)
[2023-10-20 23:53] LABS: Hepatitis A Antibody IgM Nonreactive; Hepatitis B Core IgM Nonreactive; Hepatitis B Surface Antigen Nonreactive; Hepatitis C IgG Antibody Nonreactive
== END 2023-10-20 13:13 | disposition short-term general hospital (02) | DRG 249 ==
LOC: EC 14:47 → 5NMEDONC 21:14 → OBSVTOIN 10-20 09:53 → UNDODISOB 10-20 13:13
PROVIDERS: ADMIT Hospitalist; ATTEND Hospitalist
DX: K52.9 Noninfective gastroenteritis and colitis, unspecified (principal); K85.90 Acute pancreatitis without necrosis or infection, unspecified; E78.5 Hyperlipidemia, unspecified; E66.9 Obesity, unspecified; Z68.31 Body mass index [BMI] 31.0-31.9, adult; F41.9 Anxiety disorder, unspecified; E86.0 Dehydration; K83.8 Other specified diseases of biliary tract; I10 Essential (primary) hypertension; E03.9 Hypothyroidism, unspecified; Z79.890 Hormone replacement therapy; Z82.49 Family history of ischemic heart disease and other diseases of the circulatory system; E11.9 Type 2 diabetes mellitus without complications; Z83.3 Family history of diabetes mellitus; Z90.49 Acquired absence of other specified parts of digestive tract; Z98.84 Bariatric surgery status; Z28.310 Unvaccinated for COVID-19; Z28.21 Immunization not carried out because of patient refusal; R74.01 Elevation of levels of liver transaminase levels
CPT/HCPCS: 36415; 71275; 74177; 76705; 80053; 80074; 81001; 82150; 83690; 83735; 84100; 85025; 96361; 96374; 96375; 96376; 99285

== ENCOUNTER → 2024-06-26 | Outpatient (CLI) | payer OTHER ==
--- NOTE | 2024-06-27 15:34 | MM ---
Reason for Exam: Screening (asymptomatic). Last mammogram was performed 1 year(s) and 1 month(s) ago. Patient History: Menarche at age 12. First Full-Term at age 21. Hysterectomy at age 33. Risk Values: Abigail 5 year model risk: 1.0%. NCI Lifetime model risk: 8.5%. Prior Study Comparison: 06/30/2018 Bilateral Screening Mammogram, [facility]. 12/29/2018 Left Diagnostic Mammogram, [facility]. 08/10/2019 Bilateral Screening Mammogram, [facility]. 05/14/2023 Bilateral MG 3D screening mammo w/cad, Unknown. Tissue Density: There are scattered areas of fibroglandular density. Findings: Analyzed By CAD. The pattern is symmetrical. No significant interval change. Chronic nodularity in the left breast. No suspicious groups of microcalcifications, spiculated or lobular masses, architectural distortion or other secondary signs of malignancy are mammographically apparent. Overall Assessment: Benign, BI-RAD 2 Management: Screening Mammogram of both breasts in 1 year. A negative mammogram report should not preclude additional follow up of suspicious palpable abnormalities. Patient should continue monthly self breast exam. A clinical breast exam by your physician is recommended on an annual basis and results should be correlated with mammographic findings. Note on Abigail scores and lifetime risk: 1. A Abigail score greater than 3% is considered moderate risk. If this is the case, consider specialist referral to assess eligibility for a risk reducing agent. 2. If overall lifetime risk for the development of breast cancer is 20% or higher, the patient may qualify for future screening with alternating mammogram and breast MRI. [facility], , 06/27/2024 3:32 PM. Electronically signed and approved by: Gregorio Giles D.O. Radiologis
== END | disposition home or self-care (01) ==
LOC: RADMAMWWP 11:28
PROVIDERS: ATTEND Family Medicine
DX: Z12.31 Encounter for screening mammogram for malignant neoplasm of breast (principal); R92.323 Mammographic fibroglandular density, bilateral breasts
CPT/HCPCS: 77063; 77067

== ENCOUNTER 2024-09-13 06:55 | Emergency (ER) | payer OTHER ==
[2024-09-13 06:59] VITALS: BP 139/83
--- NOTE | 2024-09-13 07:23 | ED ---
Abdominal Pain HPI - General Chief Complaint: Abdominal Pain Stated Complaint: abd pain Time Seen by Provider: 09/13/24 07:12 Source: patient, RN notes reviewed Mode of arrival: ambulatory Limitations: no limitations - History of Present Illness Initial Comments: This is a 53-year-old female who presents to the emergency department for abdominal pain, nausea, and vomiting. States that it started around 4 to 4:30 AM. The pain is in the epigastric region and states that it feels like prior bouts of pancreatitis. Denies any changes in bowel or bladder habits. She returned from a trip to the [facility] 1 week ago. MD Complaint: abdominal pain - Related Data Home Medications Medication Instructions Recorded Confirmed Citalopram Hydrobromide 40 mg PO DAILY 03/12/19 10/19/23 [Citalopram HBr] HYDROcodone/APAP 5-325MG [[place] 1 tab PO HS PRN 02/14/22 10/19/23 5-325] Cholecalciferol (Vitamin D3) 1,250 mcg PO QMONTHLY 10/19/23 10/19/23 [Vitamin D3 (1250 Mcg = 50,000 Iu)] Fexofenadine HCl [Zhane Allergy] 180 mg PO DAILY 10/19/23 10/19/23 Gabapentin [Neurontin] 300 mg PO HS 10/19/23 10/19/23 Levothyroxine Sodium [Synthroid] 112 mcg PO DAILY 10/19/23 10/19/23 Phentermine HCl [Adipex-P] 37.5 mg PO DIRECTED 10/19/23 10/19/23 Previous Rx's Medication Instructions Recorded Omeprazole 40 mg PO DAILY #30 cap 07/14/19 Ondansetron Odt [Zofran ODT] 4 mg PO Q8HR PRN #20 tab 10/19/23 Dicyclomine [Bentyl] 20 mg PO QID PRN #20 tablet 09/13/24 Ketorolac [Toradol] 10 mg PO Q6HR PRN #15 tab 09/13/24 Ondansetron Odt [Zofran Odt] 4 mg PO Q8HR PRN #15 tab 09/13/24 Allergies Allergy/AdvReac Type Severity Reaction Status Date / Time amoxicillin [From Augmentin] Allergy Unknown Verified 09/13/24 06:59 clavulanic acid Allergy Unknown Verified 09/13/24 06:59 [From Augmentin] Review of Systems ROS Statement: Those systems with pertinent positive or pertinent negative responses have been documented in the HPI. ROS Other: All systems not noted in ROS Statement are negative. Past Medical History Past Medical History: Diabetes Mellitus, Hyperlipidemia, Thyroid Disorder Additional Past Medical History / Comment(s): Pancreatitis History of Any Multi-Drug Resistant Organisms: None Reported Past Surgical History: Bariatric Surgery, Cholecystectomy, Hysterectomy, Tubal Ligation Additional Past Surgical History / Comment(s): Gastric Sleeve 07/13/19 Past Anesthesia/Blood Transfusion Reactions: No Reported Reaction Past Psychological History: Anxiety Smoking Status: Never smoker Past Alcohol Use History: None Reported Past Drug Use History: None Reported - Past Family History Mother Additional Family Medical History / Comment(s): hypoglycemia Father Family Medical History: Congestive Heart Failure (CHF) General Exam Limitations: no limitations General appearance: alert, in distress Head exam: Present: atraumatic, normocephalic, normal inspection Respiratory exam: Present: normal lung sounds bilaterally. Absent: respiratory distress, wheezes, rales, rhonchi, stridor Cardiovascular Exam: Present: regular rate, normal rhythm, normal heart sounds. Absent: systolic murmur, diastolic murmur, rubs, gallop, clicks GI/Abdominal exam: Present: soft, tenderness (epigastric), normal bowel sounds. Absent: distended Neurological exam: Present: alert, oriented X3, CN II-XII intact Psychiatric exam: Present: normal affect, normal mood Skin exam: Present: warm, dry, intact, normal color. Absent: rash Course Vital Signs 09/13/24 09/13/24 06:55 09:46 Temperature 98.8 F 97 F L Pulse Rate 82 79 Respiratory 18 121 H Rate Blood Pressure 139/83 O2 Sat by Pulse 97 95 Oximetry Medical Decision Making - Medical Decision Making This is a 53 year old female who presents to the emergency department for abdominal pain, nausea, and vomiting. Was pt. sent in by a medical professional or institution? @ -No Did you speak to anyone other than the patient for history? @ -No Did you review nursing and triage notes? @ -Yes, and I agree, it is accurate with regards to the patient's symptoms. Were old charts reviewed? @ -No Differential Diagnosis? @ -Differential Abdominal Pain Women: Appendicitis, Cholecystitis, diverticulosis, ischemic bowel, pancreatitis, hepat itis, UTI, gastroenteritis, AAA, incarcerated hernia, bowel obstruction, constipation, inflammatory bowel, hepatitis, peptic ulcer disease, splenic infarction, perforated viscus, vulvitis, ovarian torsion, PID, kidney stone, placenta abruption, this is not meant to be an all-inclusive list EKG interpreted by me (3pts min.)? @ -EKG interpreted by me demonstrating the following: Sinus rhythm. Ventricular rate 79 bpm, QRS interval 150 ms, QRS duration 97 ms, QTc 491 ms. X-rays interpreted by me (1pt min.)? @ -Not obtained CT interpreted by me (1pt min.)? @ -Not obtained U/S interpreted by me (1pt. min.)? @ -Abdominal ultrasound obtained. My interpretation identifies no signs of a CBD stone. What testing was considered but not performed? (CT, X-rays, U/S, labs)? Why? @ -None What meds were considered but not given? Why? @ -None Did you discuss the management of the patient with other professionals? @ -No Did you reconcile home meds? @ -No Was smoking cessation discussed for >3mins.? @ -No Was critical care preformed (if so, how long)? @ -No Were there social determinants of health that impacted care today? How? (Homelessness, low income, unemployed, alcoholism, drug addiction, transportation, low edu. Level, literacy, decrease access to med. care, fci, rehab)? @ -No Was there de-escalation of care discussed even if they declined? (Discuss DNR or withdrawal of care, Hospice)? @ -No What co-morbidities impacted this encounter? (DM, HTN, Smoking, COPD, CAD, Cancer, CVA, Hep., AIDS, mental health diagnosis, sleep apnea, morbid obesity)? @ -DM Was patient admitted / discharged? @ -Discharged. Lab work demonstrates mild leukocytosis with a white blood cell count of 12.3 and a lactic acid of 3.4. Urinalysis negative for signs of infection. Pancreatic enzymes within normal limits, however given that her symptoms just started, they may have not yet elevated. Patient was treated here approximately 1 year ago for similar symptoms. She ended up having a dilated CBD and there was concern for biliary obstruction. She was transferred to [facility] for further care. States that nothing was done at [facility] and she was discharged home after 2 days. We obtained an ultrasound and her CBD was found to be stable and no acute findings were identified. Her symptoms were very well-controlled in the emergency department and she was comfortable with discharge home at that point. We again discussed that it could be an early pancreatitis and if symptoms return and are unbearable with the medication she has at home, she should return for further evaluation. Rx for Bentyl, Toradol, and Zofran provided. Advised bowel rest for the meantime as well. Patient discharged home in stable condition. Case discussed with ED attending Dr. Vasquez. Return precautions reviewed in depth, the patient is instructed to return to the emergency department with any new, worsening, or concerning symptoms. Patient verbalized understanding. Undiagnosed new problem with uncertain prognosis? @ -None Drug Therapy requiring intensive monitoring for toxicity (Heparin, Nitro, Ins ulin, Cardizem)? @ -None Were any procedures done? @ -None Diagnosis/symptom? @ -Abdominal pain, nausea and vomiting Acute, or Chronic, or Acute on Chronic? @ -Acute Uncomplicated (without systemic symptoms) or Complicated (systemic symptoms)? @ -Uncomplicated Side effects of treatment? @ -None Exacerbation, Progression, or Severe Exacerbation] @ -Not applicable Poses a threat to life or bodily function? @ -Unlikely - Lab Data Result diagrams: 09/13/24 07:35 09/13/24 07:35 Lab Results 09/13/24 09/13/24 09/13/24 Range/Units 07:35 07:35 07:35 WBC 12.3 H (3.8-10.6) k/uL RBC 5.02 (3.80-5.40) m/uL Hgb 14.1 (11.4-16.0) gm/dL Hct 42.6 (34.0-46.0) % MCV 84.8 (80.0-100.0) fL MCH 28.0 (25.0-35.0) pg MCHC 33.0 (31.0-37.0) g/dL RDW 12.3 (11.5-15.5) % Plt Count 245 (150-450) k/uL MPV 7.8 Neutrophils % 77 % Lymphocytes % 15 % Monocytes % 4 % Eosinophils % 2 % Basophils % 0 % Neutrophils # 9.4 H (1.3-7.7) k/uL Lymphocytes # 1.8 (1.0-4.8) k/uL Monocytes # 0.5 (0-1.0) k/uL Eosinophils # 0.3 (0-0.7) k/uL Basophils # 0.1 (0-0.2) k/uL Sodium 138 (137-145) mmol/L Potassium 3.6 (3.5-5.1) mmol/L Chloride 101 (98-107) mmol/L Carbon Dioxide 24 (22-30) mmol/L Anion Gap 13 mmol/L BUN 23 H (7-17) mg/dL Creatinine 0.67 (0.52-1.04) mg/dL Est GFR (CKD-EPI)AfAm >90 (>60 ml/min/1.73 sqM) Est GFR (CKD-EPI)NonAf >90 (>60 ml/min/1.73 sqM) Glucose 179 H (74-99) mg/dL Lactic Ac Sepsis Rflx Plasma Lactic Acid Serafin 3.4 H* (0.7-2.0) mmol/L Calcium 9.5 (8.4-10.2) mg/dL Total Bilirubin 0.7 (0.2-1.3) mg/dL AST 55 H (14-36) U/L ALT 23 (4-34) U/L Alkaline Phosphatase 85 (38-126) U/L Troponin I (0.000-0.034) ng/mL Total Protein 7.3 (6.3-8.2) g/dL Albumin 4.4 (3.5-5.0) g/dL Amylase 82 (30-110) U/L Lipase 230 (23-300) U/L Urine Color Urine Appearance (Clear) Urine pH (5.0-8.0) Ur Specific [place] (1.001-1.035) Urine Protein (Negative) Urine Glucose (UA) (Negative) Urine Ketones (Negative) Urine Blood (Negative) Urine Nitrite (Negative) Urine Bilirubin (Negative) Urine Urobilinogen (<2.0) mg/dL Ur Leukocyte Esterase (Negative) 09/13/24 09/13/24 09/13/24 Range/Units 07:35 08:00 08:25 WBC (3.8-10.6) k/uL RBC (3.80-5.40) m/uL Hgb (11.4-16.0) gm/dL Hct (34.0-46.0) % MCV (80.0-100.0) fL MCH (25.0-35.0) pg MCHC (31.0-37.0) g/dL RDW (11.5-15.5) % Plt Count (150-450) k/uL MPV Neutrophils % % Lymphocytes % % Monocytes % % Eosinophils % % Basophils % % Neutrophils # (1.3-7.7) k/uL Lymphocytes # (1.0-4.8) k/uL Monocytes # (0-1.0) k/uL Eosinophils # (0-0.7) k/uL Basophils # (0-0.2) k/uL Sodium (137-145) mmol/L Potassium (3.5-5.1) mmol/L Chloride (98-107) mmol/L Carbon Dioxide (22-30) mmol/L Anion Gap mmol/L BUN (7-17) mg/dL Creatinine (0.52-1.04) mg/dL Est GFR (CKD-EPI)AfAm (>60 ml/min/1.73 sqM) Est GFR (CKD-EPI)NonAf (>60 ml/min/1.73 sqM) Glucose (74-99) mg/dL Lactic Ac Sepsis Rflx Y Plasma Lactic Acid Serafin (0.7-2.0) mmol/L Calcium (8.4-10.2) mg/dL Total Bilirubin (0.2-1.3) mg/dL AST (14-36) U/L ALT (4-34) U/L Alkaline Phosphatase (38-126) U/L Troponin I <0.012 (0.000-0.034) ng/mL Total Protein (6.3-8.2) g/dL Albumin (3.5-5.0) g/dL Amylase (30-110) U/L Lipase (23-300) U/L Urine Color Yellow Urine Appearance Clear (Clear) Urine pH 6.0 (5.0-8.0) Ur Specific [place] 1.038 H (1.001-1.035) Urine Protein Trace H (Negative) Urine Glucose (UA) Negative (Negative) Urine Ketones 3+ H (Negative) Urine Blood Negative (Negative) Urine Nitrite Negative (Negative) Urine Bilirubin Negative (Negative) Urine Urobilinogen <2.0 (<2.0) mg/dL Ur Leukocyte Esterase Negative (Negative) - Radiology Data Radiology results: report reviewed, image reviewed Disposition Clinical Impression: Abdominal pain, Nausea and vomiting Disposition: HOME SELF-CARE Instructions (If sedation given, give patient instructions): Acute Nausea and Vomiting (ED), Abdominal Pain (ED) Additional Instructions: Return to the emergency department with any new, worsening, or concerning symptoms. Take the Toradol with Tylenol as needed for pain relief. If you choose to take the Toradol, do not take any other anti-inflammatories such as ibuprofen, take one or the other. Take the Bentyl up to 4 times daily as needed for abdominal pain and cramping. Take the Zofran up to every 8 hours as needed for nausea and vomiting. Slowly advance your diet as tolerated and remain well- hydrated. Follow up with your primary care provider in 1-2 days. Prescriptions: Dicyclomine [Bentyl] 20 mg PO QID PRN #20 tablet PRN Reason: Gi Upset Ketorolac [Toradol] 10 mg PO Q6HR PRN #15 tab PRN Reason: Pain Ondansetron Odt [Zofran Odt] 4 mg PO Q8HR PRN #15 tab PRN Reason: Nausea And Vomiting Is patient prescribed a controlled substance at d/c from ED?: No Referrals: Pcaheco Bro MD [Primary Care Provider] - 1-2 days Time of Disposition: 09:38
[2024-09-13] MEDS: KETOROLAC 15 MG/ML 1 ML VIAL IVP STA (07:25)
[2024-09-13] MEDS: ONDANSETRON 4 MG/2 ML VIAL IVP STA (07:27)
[2024-09-13] MEDS: SODIUM CHLORIDE 0.9% 1,000 ML IV STA ×2 (07:28→08:33)
[2024-09-13] MEDS: HYDROmorphone 1 MG/ML 1 ML SYRINGE IVP STA (07:31)
[2024-09-13] MEDS: PANTOPRAZOLE 40 MG/10 ML VIAL IVP STA (07:34)
[2024-09-13 08:01] LABS: Basophils # (A) 0.1 k/uL (0-0.2); Basophils % (A) 0 %; Eosinophils # (A) 0.3 k/uL (0-0.7); Eosinophils % (A) 2 %; HCT 42.6 % (34.0-46.0); HGB 14.1 gm/dL (11.4-16.0); Lymphocytes # (A) 1.8 k/uL (1.0-4.8); Lymphocytes % (A) 15 %; MCV 84.8 fL (80.0-100.0); Mean Platelet Volume 7.8; Monocytes # (A) 0.5 k/uL (0-1.0); Monocytes % (A) 4 %; Neutrophils # (A) 9.4 k/uL (1.3-7.7); Neutrophils % (A) 77 %; Platelet Count 245 k/uL (150-450); RBC 5.02 m/uL (3.80-5.40); RDW 12.3 % (11.5-15.5); WBC 12.3 k/uL (3.8-10.6)
[2024-09-13 08:13] LABS: ALT 23 U/L (4-34); AST 55 U/L (14-36); African American GFR (CKD) >90 (>60 ml/min/1.73 sqM); Albumin 4.4 g/dL (3.5-5.0); Alkaline Phosphatase 85 U/L (38-126); Amylase 82 U/L (30-110); Anion Gap 13 mmol/L; Blood Urea Nitrogen 23 mg/dL (7-17); Calcium 9.5 mg/dL (8.4-10.2); Carbon Dioxide 24 mmol/L (22-30); Chloride 101 mmol/L (98-107); Glucose 179 mg/dL (74-99); Lipase 230 U/L (23-300); Non-African American GFR(CKD) >90 (>60 ml/min/1.73 sqM); Potassium 3.6 mmol/L (3.5-5.1); Sodium 138 mmol/L (137-145); Total Bilirubin 0.7 mg/dL (0.2-1.3); Total Protein 7.3 g/dL (6.3-8.2)
[2024-09-13 08:27] LABS: Appearance,Urine Clear (Clear); Bilirubin,Urine Negative (Negative); Blood,Urine Negative (Negative); Color,Urine Yellow; Glucose,Urine (UA) Negative (Negative); Ketones,Urine 3+ (Negative); Leukocyte Esterase,Urine Negative (Negative); Nitrite,Urine Negative (Negative); Protein,Urine Trace (Negative); Specific Gravity,Urine 1.038 (1.001-1.035); Urobilinogen,Urine <2.0 mg/dL (<2.0)
[2024-09-13] MEDS: DICYCLOMINE 10 MG/ML 2 ML AMP IM STA (08:28)
[2024-09-13] MEDS: HYOSCYAMINE SULFATE 0.125 MG TAB PO STA (08:32)
--- NOTE | 2024-09-13 09:11 | US ---
EXAMINATION TYPE: US abdomen limited DATE OF EXAM: 09/13/2024 COMPARISON: US liver and CT AP 10/19/23 CLINICAL INDICATION: Female, 53 years old with history of Upper abdominal pain, eval CBD and pancreas ; Hx cholecystectomy, hx gastric sleeve TECHNIQUE: Grayscale and color Doppler imaging of the right upper quadrant. FINDINGS: EXAM MEASUREMENTS: Liver Length: 13.5 cm CBD: 0.9 cm, color Doppler imaging was utilized to isolate the common bile duct for measurement. Right Kidney: 10.2 x 4.1 x 5.1 cm BINGO FLOATER NOTES: Pancreas: Limited visualization; abundant peristalsing bowel noted Liver: wnl Gallbladder: Surgically absent CBD: wnl Right Kidney: wnl Limited visualization of the pancreas due to abundant peristalsing bowel. The liver appears within no rmal limits without focal lesion identified. Gallbladder is surgically absent. Stable dilatation of t he common bile duct. Right kidney is unremarkable without evidence of shadowing calculi, hydronephros is or solid mass. IMPRESSION: Stable dilatation of the common bile duct likely related to postcholecystectomy change. Otherwise no evidence for acute process. [facility], , 09/13/2024 9:08 AM
[2024-09-13 09:47] VITALS: PULSE 79; RESP 121; TEMP 97
== END 2024-09-13 09:46 | disposition home or self-care (01) ==
LOC: EC 06:55
DX: R10.13 Epigastric pain (principal); R11.2 Nausea with vomiting, unspecified; E11.9 Type 2 diabetes mellitus without complications; Z88.0 Allergy status to penicillin; Z88.1 Allergy status to other antibiotic agents
CPT/HCPCS: 36415; 93005; 80053; 82150; 83605; 83690; 84484; 85025; 81003; 76705; 99285; 96374; 96375; 96361; 96372; J0500; J2405; J1171; J1885; J2470